=== PATIENT | female | born 1985 | race Caucasian/White ===

== ENCOUNTER 2017-02-20 12:39 | Emergency (ER) | payer SELFPAY ==
[2017-02-20 12:46] VITALS: BP 139/83
--- NOTE | 2017-02-20 14:11 | ER Document Report ---
ED General - General Chief Complaint: Flank Pain Stated Complaint: LEFT PELVIC PAIN Time Seen by Provider: 02/20/17 13:57 Mode of Arrival: Ambulatory Information source: Patient Notes: 32-year-old female history of ovarian cyst presents with complaints of left lower quadrant abdominal pain similar to previous ovarian issues. Patient notes she has a history of PCOS, does not wish to have any imaging or lab work performed at this time TRAVEL OUTSIDE OF THE [place] IN LAST 30 DAYS: No COUNTRY TRAVELED TO/FROM: [facility] - [facility] Onset: Just prior to arrival Onset/Duration: Sudden Quality of pain: Sharp Severity: Mild Pain Level: 1 Associated symptoms: Other Exacerbated by: Denies Relieved by: Denies Similar symptoms previously: Yes Recently seen / treated by doctor: Yes - Related Data Allergies/Adverse Reactions: No Known Allergies Allergy (Verified 02/20/17 13:55) Past Medical History - Social History Smoking Status: Never Smoker Cigarette use (# per day): No Chew tobacco use (# tins/day): No Smoking Education Provided: No Frequency of alcohol use: Occasional Drug Abuse: None Family History: Arthritis, DM, Hyperlipidemia, Hypertension, Malignancy Patient has suicidal ideation: No Patient has homicidal ideation: No - Past Medical History Cardiac Medical History: Reports: Hx Hypercholesterolemia Pulmonary Medical History: Reports: Hx Asthma, Hx Bronchitis Renal/ Medical History: Reports: Hx Kidney Stones, Hx Ovarian Cysts. Denies: Hx Peritoneal Dialysis Past Surgical History: Reports: Hx Cardiac Surgery - x1, Hx Section - x1, Hx Gynecologic Surgery - ovarian cyst removal, Hx Myringotomy, Hx Tubal Ligation, Hx Umbilical Hernia - Immunizations Hx Diphtheria, Pertussis, Tetanus Vaccination: Yes Review of Systems - Review of Systems Notes: REVIEW OF SYSTEMS: CONSTITUTIONAL : Denies fever, chills, or sweats. Denies recent illness. EENT: Denies eye, ear, throat, or mouth pain or symptoms. Denies nasal or sinus congestion or discharge. Denies throat, tongue, or mouth swelling or difficulty swallowing. CARDIOVASCULAR: Denies chest pain. Denies palpitations or racing or irregular heart beat. Denies ankle edema. RESPIRATORY: Denies cough, cold, or chest congestion. Denies shortness of breath, difficulty breathing, or wheezing. GASTROINTESTINAL: Denies abdominal pain or distention. Denies nausea, vomiting , or diarrhea. Denies blood in vomitus, stools, or per rectum. Denies black, tarry stools. Denies constipation. GENITOURINARY: Denies difficulty urinating, painful urination, burning, frequency, blood in urine, or discharge. FEMALE GENITOURINARY: LLQ pain MUSCULOSKELETAL: Denies back or neck pain or stiffness. Denies joint pain or swelling. SKIN: Denies rash, lesions or sores. HEMATOLOGIC : Denies easy bruising or bleeding. LYMPHATIC: Denies swollen, enlarged glands. NEUROLOGICAL: Denies confusion or altered mental status. Denies passing out or loss of consciousness. Denies dizziness or lightheadedness. Denies headache. Denies weakness or paralysis or loss of use of either side. Denies problems with gait or speech. Denies sensory loss, numbness, or tingling. Denies seizures. PSYCHIATRIC: Denies anxiety or stress. Denies depression, suicidal ideation, or homicidal ideation. ALL OTHER SYSTEMS REVIEWED AND NEGATIVE. Dictation was performed using [employer] voice recognition software PHYSICAL EXAMINATION: GENERAL: Well-appearing, well-nourished and in no acute distress. HEAD: Atraumatic, normocephalic. EYES: Pupils equal round and reactive to light, extraocular movements intact, conjunctiva are normal. ENT: Nares patent, oropharynx clear without exudates. Moist mucous membranes. NECK: Normal range of motion, supple without lymphadenopathy LUNGS: Breath sounds clear to auscultation bilaterally and equal. No wheezes rales or rhonchi. HEART: Regular rate and rhythm without murmurs ABDOMEN: Soft, tender in the LLQ no rebound or guarding Female : deferred Musculoskeletal: Normal range of motion, no pitting or edema. No cyanosis. NEUROLOGICAL: Cranial nerves grossly intact. Normal speech, normal gait. Normal sensory, motor exams PSYCH: Normal mood, normal affect. SKIN: Warm, Dry, normal turgor, no rashes or lesions noted. Physical Exam - Vital signs Vitals: Temp Pulse Resp BP Pulse Ox 97.8 F 80 18 139/83 H 98 02/20/17 12:45 02/20/17 12:45 02/20/17 12:45 02/20/17 12:45 02/20/17 12:45 Course - Re-evaluation Re-evalutation: 02/20/17 14:09 Patient defers on any lab work or imaging, which is only pain control, she understands the risks of this given that I do not know for sure that her pain is secondary to an ovarian cyst. Patient states she is 100% certain that it does, therefore she will be discharged after a physical examination and a medical screening exam however there is high risk for any life-threatening issues she does not wish me to look into Issues include ovarian torsion PID diverticulitis - Vital Signs Vital signs: Temp Pulse Resp BP Pulse Ox 97.8 F 80 18 139/83 H 98 02/20/17 12:45 02/20/17 12:45 02/20/17 12:45 02/20/17 12:45 02/20/17 12:45 Discharge - Discharge Clinical Impression: LLQ pain, PCOS (polycystic ovarian syndrome) Condition: Stable Disposition: HOME, SELF-CARE Instructions: Ovarian Cyst ([facility]) Prescriptions: Hydrocodone/Acetaminophen [[place] 5-325 mg Tablet] 1 tab PO Q6 #14 tablet Forms: Return to Work Referrals: [facility] [Provider Group] - Follow up tomorrow
== END 2017-02-20 14:14 | disposition home or self-care (01) ==
LOC: ER 12:39
DX: R10.32 Left lower quadrant pain (principal); E28.2 Polycystic ovarian syndrome; E78.00 Pure hypercholesterolemia, unspecified; Z87.442 Personal history of urinary calculi; Z98.51 Tubal ligation status
CPT/HCPCS: 99283

== ENCOUNTER 2017-05-20 21:41 | Emergency (ER) | payer SELFPAY ==
[2017-05-21] MEDS ORDERED: ONDANSETRON HCL INJ/PF 4 MG/2 ML SDV IV ONE (01:06)
[2017-05-21] MEDS ORDERED: NORMAL SALINE 1000 ML 1,000 ML IV ONE (01:07)
[2017-05-21] MEDS ORDERED: HYDROMORPHONE HCL INJ/PF 2 MG/ML AMPULE IV ONE (01:07)
--- NOTE | 2017-05-21 01:08 | ER Document Report ---
ED General - General Chief Complaint: L flank/side pain Stated Complaint: FLANK PAIN Time Seen by Provider: 05/21/17 00:54 Mode of Arrival: Ambulatory Information source: Patient TRAVEL OUTSIDE OF THE [place] IN LAST 30 DAYS: No - HPI Notes: Patient is a 32-year-old white female history of kidney stones, PCOS and urinary tract infections of left flank to presents to the emergency department with report left lower quadrant pain that she has had for the last 5 days with mild nausea. History of previous appendectomy and tubal ligation. Patient denies any vaginal bleeding or discharge or back injury or fever. - Related Data Allergies/Adverse Reactions: No Known Allergies Allergy (Verified 02/20/17 13:55) Past Medical History - General Information source: Patient - Social History Smoking Status: Never Smoker Frequency of alcohol use: None Drug Abuse: None Lives with: Family Family History: Arthritis, DM, Hyperlipidemia, Hypertension, Malignancy - Past Medical History Cardiac Medical History: Reports: Hx Hypercholesterolemia Pulmonary Medical History: Reports: Hx Asthma, Hx Bronchitis Renal/ Medical History: Reports: Hx Kidney Stones, Hx Ovarian Cysts. Denies: Hx Peritoneal Dialysis Past Surgical History: Reports: Hx Cardiac Surgery - x1, Hx Section - x1, Hx Gynecologic Surgery - ovarian cyst removal, Hx Myringotomy, Hx Tubal Ligation, Hx Umbilical Hernia - Immunizations Hx Diphtheria, Pertussis, Tetanus Vaccination: Yes Review of Systems - Review of Systems Notes: REVIEW OF SYSTEMS: CONSTITUTIONAL : Denies fever, chills, or sweats. Denies recent illness. EENT: Denies eye, ear, throat, or mouth pain or symptoms. Denies nasal or sinus congestion or discharge. Denies throat, tongue, or mouth swelling or difficulty swallowing. CARDIOVASCULAR: Denies chest pain. Denies palpitations or racing or irregular heart beat. Denies ankle edema. RESPIRATORY: Denies cough, cold, or chest congestion. Denies shortness of breath, difficulty breathing, or wheezing. GASTROINTESTINAL: Denies abdominal distention. Denies vomiting, or diarrhea. Denies blood in vomitus, stools, or per rectum. Denies black, tarry stools. Denies constipation. GENITOURINARY: Denies difficulty urinating, painful urination, burning, frequency, blood in urine, or discharge. FEMALE GENITOURINARY: Denies vaginal bleeding, heavy or abnormal periods, irregular periods. Denies vaginal discharge or odor. MUSCULOSKELETAL: Denies neck pain or stiffness. Denies joint pain or swelling. SKIN: Denies rash, lesions or sores. HEMATOLOGIC : Denies easy bruising or bleeding. LYMPHATIC: Denies swollen, enlarged glands. NEUROLOGICAL: Denies confusion or altered mental status. Denies passing out or loss of consciousness. Denies dizziness or lightheadedness. Denies headache. Denies weakness or paralysis or loss of use of either side. Denies problems with gait or speech. Denies sensory loss, numbness, or tingling. Denies seizures. PSYCHIATRIC: Denies anxiety or stress. Denies depression, suicidal ideation, or homicidal ideation. ALL OTHER SYSTEMS REVIEWED AND NEGATIVE. Dictation was performed using [employer] voice recognition software Physical Exam - Vital signs Vitals: Temp Pulse Resp BP Pulse Ox 98.1 F 107 H 18 139/99 H 99 05/20/17 22:44 05/20/17 22:44 05/20/17 22:44 05/20/17 22:44 05/20/17 22:44 - Notes Notes: PHYSICAL EXAMINATION: GENERAL: Well-appearing, well-nourished and in no acute distress. HEAD: Atraumatic, normocephalic. EYES: Pupils equal round and reactive to light, extraocular movements intact, conjunctiva are normal. ENT: Nares patent, oropharynx clear without exudates. Moist mucous membranes. NECK: Normal range of motion, supple without lymphadenopathy LUNGS: Breath sounds clear to auscultation bilaterally and equal. No wheezes rales or rhonchi. HEART: Regular rate and rhythm without murmurs ABDOMEN: Soft, mildly obese abdomen. No guarding, no rebound. No masses appreciated. Tender left flank CVA region to the left lower quadrant. No rebound or guarding. No pulsatile mass. Female : deferred Musculoskeletal: Normal range of motion, no pitting or edema. No cyanosis. NEUROLOGICAL: Cranial nerves grossly intact. Normal speech, normal gait. Normal sensory, motor exams PSYCH: Normal mood, normal affect. SKIN: Warm, Dry, normal turgor, no rashes or lesions noted. Course - Re-evaluation Re-evalutation: 05/21/17 02:58 Patient given normal saline bolus and given Zofran and Dilaudid for pain. 05/21/17 02:59 No evidence for kidney stone or diverticulitis or significant constipation. 05/21/17 03:58 Urine culture taken. Patient given IV Rocephin and additional morphine and had adequate pain relief. - Vital Signs Vital signs: Temp Pulse Resp BP Pulse Ox 98.1 F 107 H 18 139/99 H 99 05/20/17 22:44 05/20/17 22:44 05/20/17 22:44 05/20/17 22:44 05/20/17 22:44 - Laboratory Result Diagrams: 05/21/17 02:15 05/21/17 02:15 Laboratory results interpreted by me: 05/21/17 03:06 Urine Ketones TRACE H Ur Leukocyte Esterase SMALL H Discharge - Discharge Clinical Impression: Pyelonephritis Condition: Stable Disposition: HOME, SELF-CARE Instructions: Antinausea Medication ([facility]), Oral Narcotic Medication ([facility]), Pyelonephritis ([facility]), Rocephin ([facility]) Additional Instructions: Return to the emergency department in case of high fever, severe pain or vomiting. Prescriptions: Hydrocodone/Acetaminophen [[place] 5-325 mg Tablet] 1 tab PO Q4HP PRN #20 tablet PRN Reason: Ondansetron [Zofran Odt 4 mg Tablet] 1 tab PO Q8HP PRN #10 tab.rapdis PRN Reason: For Nausea/Vomiting Sulfamethoxazole/Trimethoprim [Bactrim Ds Tablet] 1 each PO BID #20 tablet Forms: Return to Work
--- NOTE | 2017-05-21 02:06 | RADIOLOGY REPORT (SQ) ---
EXAM DESCRIPTION: CT LTD RENAL STONE PROTOCOL ON COMPLETED DATE/TIME: 05/21/2017 1:35 am REASON FOR STUDY: L flank pain, hx renal stones and BTL COMPARISON: CT abdomen and pelvis 04/29/2016. TECHNIQUE: CT scan of the abdomen and pelvis performed without intravenous or oral contrast. Images reviewed with lung, soft tissue, and bone windows. Reconstructed coronal and sagittal MPR images revi ewed. All images stored on PACS. All CT scanners at this facility use dose modulation, iterative reconstruction, and/or weight based d osing when appropriate to reduce radiation dose to as low as reasonably achievable (ALARA). [facility]: Dose Right [facility]: CareDose [facility]: Dose Right [facility]: Teradose 4D [facility]: [employer] RADIATION DOSE: Up-to-date CT equipment and radiation dose reduction techniques were employed. CTDIv ol: 18.4 mGy. DLP: 1036 mGy-cm.mGy. LIMITATIONS: None. FINDINGS: LOWER CHEST: No consolidation or pleural effusion. There is a small hiatal hernia. NON-CONTRASTED LIVER, SPLEEN, ADRENALS: Evaluation limited by lack of IV contrast. No identified sign ificant masses. PANCREAS: No peripancreatic inflammatory changes. GALLBLADDER: There is cholelithiasis. RIGHT KIDNEY AND URETER: Assessment for masses limited by lack of IV contrast. No significant calci fications. No hydronephrosis or hydroureter. LEFT KIDNEY AND URETER: Assessment for masses limited by lack of IV contrast. No significant calcif ications. No hydronephrosis or hydroureter. AORTA AND RETROPERITONEUM: No abdominal aortic aneurysm. No retroperitoneal masses or adenopathy. BOWEL AND PERITONEAL CAVITY: No dilated bowel loops or inflammatory changes. No free fluid. APPENDIX: Surgically absent. PELVIS, BLADDER, AND ABDOMINAL WALL:No abnormal masses. No free fluid. Bladder decompressed. There i s a small fat containing umbilical hernia. BONES: No acute findings. IMPRESSION: No urinary tract calculi or hydronephrosis. No acute findings on unenhanced CT. Cholelithiasis. Small hiatal hernia. COMMENT: Quality ID # [id number]: Final reports with documentation of one or more dose reduction techniques (e.g., Automated exposure control, adjustment of the mA and/or kV according to patient size, use of iterative reconstruction technique) TECHNICAL DOCUMENTATION: JOB ID: [id number]- All Rights Reserved
[2017-05-21 02:41] LABS: ABSOLUTE EOSINOPHILS # (AUTO) 0.2 10^3/uL (0.0-0.6); ABSOLUTE LYMPHOCYTES (AUTO) 2.3 10^3/uL (0.5-4.7); ABSOLUTE MONOCYTES (AUTO) 0.7 10^3/uL (0.1-1.4); ABSOLUTE NEUT (AUTO) 7.2 10^3/uL (1.7-8.2); BASOPHILS % (AUTO) 0.4 % (0-2); EOSINOPHILS % (AUTO) 1.5 % (0-6); HEMATOCRIT 38.8 % (36.0-47.0); HEMOGLOBIN 13.2 g/dL (12.0-15.5); HGB HCT DIFFERENCE 0.8; LYMPHOCYTES % (AUTO) 22.3 % (13-45); MEAN CORPUSCULAR HEMOGLOBIN 29.3 pg (27.0-33.4); MEAN CORPUSCULAR HGB CONC 34.1 g/dL (32.0-36.0); MEAN CORPUSCULAR VOLUME 86 fl (80-97); MONOCYTES % (AUTO) 6.7 % (3-13); RED BLOOD COUNT 4.51 10^6/uL (3.72-5.28); RED CELL DISTRIBUTION WIDTH 13.8 % (11.5-14.0); SEGMENTED NEUTROPHILS % (AUTO) 69.1 % (42-78); WHITE BLOOD COUNT 10.4 10^3/uL (4.0-10.5)
[2017-05-21 02:47] LABS: ALANINE AMINOTRANSFERASE 48 U/L (9-52); ALBUMIN 4.3 g/dL (3.5-5.0); ALKALINE PHOSPHATASE 67 U/L (38-126); ANION GAP 15 (5-19); ASPARTATE AMINO TRANSFERASE 23 U/L (14-36); BILIRUBIN,DIRECT 0.4 mg/dL (0.0-0.4); BILIRUBIN,TOTAL 0.7 mg/dL (0.2-1.3); BLOOD UREA NITROGEN 12 mg/dL (7-20); CALCIUM 9.7 mg/dL (8.4-10.2); CARBON DIOXIDE 22 mmol/L (22-30); CHLORIDE 106 mmol/L (98-107); CREATININE RESULT 0.79 mg/dL (0.52-1.25); GLUCOSE 92 mg/dL (75-110); LIPASE 43.5 U/L (23-300); POTASSIUM 4.1 mmol/L (3.6-5.0); SODIUM 142.5 mmol/L (137-145); TOTAL PROTEIN 6.9 g/dL (6.3-8.2)
[2017-05-21 03:27] LABS: APPEARANCE,URINE SLIGHTLY-CLOUDY; BILIRUBIN,URINE NEGATIVE (NEGATIVE); GLUCOSE, URINE NEGATIVE (NEGATIVE); KETONES,URINE TRACE mg/dL (NEGATIVE); LEUKOCYTE ESTERASE,URINE SMALL (NEGATIVE); NITRITE,URINE NEGATIVE (NEGATIVE); PROTEIN,URINE NEGATIVE (NEGATIVE); URINE SPECIFIC GRAVITY 1.014; UROBILINOGEN,URINE NEGATIVE mg/dL (<2.0)
[2017-05-21] MEDS ORDERED: CEFTRIAXONE INJ 1000 MG VIAL IV ONE (03:55)
[2017-05-21] MEDS ORDERED: MORPHINE SULFATE 10 MG/ML INJ IV ONE (03:57)
[2017-05-21] MEDS ORDERED: HYDROCODONE/ACETAMINOPHEN 5-325 MG 6 TAB/DSPK PO PRN (03:57)
[2017-05-21 05:14] VITALS: BP 125/84
== END 2017-05-21 05:09 | disposition home or self-care (01) ==
LOC: ER 21:41
DX: R10.9 Unspecified abdominal pain (principal); N12 Tubulo-interstitial nephritis, not specified as acute or chronic; E78.00 Pure hypercholesterolemia, unspecified; J45.909 Unspecified asthma, uncomplicated; Z87.440 Personal history of urinary (tract) infections; Z87.442 Personal history of urinary calculi; Z98.51 Tubal ligation status
CPT/HCPCS: 99284; 96375; 96365; 36415; 87086; 83690; 85025; 80053; 81001; 76380; J2270; J1170; J0696; J2405; J7030

== ENCOUNTER 2017-05-27 11:40 | Observation (INO) | payer SELFPAY ==
[2017-05-27] MEDS ORDERED: NORMAL SALINE 1000 ML 1,000 ML IV PRN (12:07)
[2017-05-27] MEDS ORDERED: ONDANSETRON HCL INJ/PF 4 MG/2 ML SDV IV ONE (12:07)
[2017-05-27] MEDS ORDERED: MORPHINE SULFATE 10 MG/ML INJ IV ONE ×2 (12:07→15:41)
--- NOTE | 2017-05-27 12:08 | ER Document Report ---
ED Medical Screen (RME) - General Chief Complaint: Abdominal Pain Stated Complaint: CHEST PAIN Time Seen by Provider: 05/27/17 12:05 Notes: Patient states yesterday she had a dull pain in the right upper quadrant. This morning she woke with severe right upper quadrant pain that radiates to her back and right shoulder. She has not vomited but has no appetite. She has not had a bowel movement in 2 days. No problems with urination. No vaginal symptoms. She has had a previous appendectomy but no other abdominal surgeries. No shortness of breath. TRAVEL OUTSIDE OF THE [place] IN LAST 30 DAYS: No - Related Data Allergies/Adverse Reactions: No Known Allergies Allergy (Verified 02/20/17 13:55) Past Medical History - Past Medical History Cardiac Medical History: Reports: Hx Hypercholesterolemia Pulmonary Medical History: Reports: Hx Asthma, Hx Bronchitis Renal/ Medical History: Reports: Hx Kidney Stones, Hx Ovarian Cysts. Denies: Hx Peritoneal Dialysis Past Surgical History: Reports: Hx Cardiac Surgery - x1, Hx Section - x1, Hx Gynecologic Surgery - ovarian cyst removal, Hx Myringotomy, Hx Tubal Ligation, Hx Umbilical Hernia - Immunizations Hx Diphtheria, Pertussis, Tetanus Vaccination: Yes Physical Exam - Vital signs Vitals: Temp Pulse Resp BP Pulse Ox 97.6 F 133 H 18 145/94 H 98 05/27/17 11:43 05/27/17 11:43 05/27/17 11:43 05/27/17 11:43 05/27/17 11:43 Course - Vital Signs Vital signs: Temp Pulse Resp BP Pulse Ox 97.6 F 133 H 18 145/94 H 98 05/27/17 11:43 05/27/17 11:43 05/27/17 11:43 05/27/17 11:43 05/27/17 11:43
[2017-05-27 13:13] LABS: ABSOLUTE EOSINOPHILS # (AUTO) 0.2 10^3/uL (0.0-0.6); ABSOLUTE LYMPHOCYTES (AUTO) 1.3 10^3/uL (0.5-4.7); ABSOLUTE MONOCYTES (AUTO) 0.5 10^3/uL (0.1-1.4); ABSOLUTE NEUT (AUTO) 5.4 10^3/uL (1.7-8.2); BASOPHILS % (AUTO) 0.4 % (0-2); EOSINOPHILS % (AUTO) 2.4 % (0-6); HEMATOCRIT 41.5 % (36.0-47.0); HEMOGLOBIN 14.2 g/dL (12.0-15.5); HGB HCT DIFFERENCE 1.1; LYMPHOCYTES % (AUTO) 17.9 % (13-45); MEAN CORPUSCULAR HEMOGLOBIN 29.7 pg (27.0-33.4); MEAN CORPUSCULAR HGB CONC 34.2 g/dL (32.0-36.0); MEAN CORPUSCULAR VOLUME 87 fl (80-97); MONOCYTES % (AUTO) 6.5 % (3-13); RED BLOOD COUNT 4.78 10^6/uL (3.72-5.28); RED CELL DISTRIBUTION WIDTH 13.7 % (11.5-14.0); SEGMENTED NEUTROPHILS % (AUTO) 72.8 % (42-78); WHITE BLOOD COUNT 7.4 10^3/uL (4.0-10.5)
[2017-05-27 13:17] LABS: APPEARANCE,URINE SLIGHTLY-CLOUDY; BILIRUBIN,URINE NEGATIVE (NEGATIVE); GLUCOSE, URINE NEGATIVE (NEGATIVE); KETONES,URINE NEGATIVE (NEGATIVE); LEUKOCYTE ESTERASE,URINE TRACE (NEGATIVE); NITRITE,URINE NEGATIVE (NEGATIVE); PROTEIN,URINE NEGATIVE (NEGATIVE); URINE SPECIFIC GRAVITY 1.025
[2017-05-27 13:28] LABS: ALANINE AMINOTRANSFERASE 47 U/L (9-52); ALBUMIN 4.8 g/dL (3.5-5.0); ALKALINE PHOSPHATASE 73 U/L (38-126); ANION GAP 13 (5-19); ASPARTATE AMINO TRANSFERASE 35 U/L (14-36); BILIRUBIN,DIRECT 0.4 mg/dL (0.0-0.4); BILIRUBIN,TOTAL 0.8 mg/dL (0.2-1.3); BLOOD UREA NITROGEN 9 mg/dL (7-20); CALCIUM 9.9 mg/dL (8.4-10.2); CARBON DIOXIDE 21 mmol/L (22-30); CHLORIDE 107 mmol/L (98-107); CREATININE RESULT 0.87 mg/dL (0.52-1.25); GLUCOSE 108 mg/dL (75-110); LIPASE 38.3 U/L (23-300); POTASSIUM 4.2 mmol/L (3.6-5.0); SODIUM 140.8 mmol/L (137-145); TOTAL PROTEIN 7.7 g/dL (6.3-8.2)
--- NOTE | 2017-05-27 13:42 | ER Document Report ---
ED General - General Chief Complaint: Abdominal Pain Stated Complaint: CHEST PAIN Time Seen by Provider: 05/27/17 12:05 Information source: Patient Notes: 32-year-old female with past medical history as recorded being treated recently for urinary tract infection who presents today with 2 different presentations. In triage she complained initially of some right upper quadrant pain that radiated to her back and shoulder. On my examination she complains mostly of right-sided chest pain worse with deep inspirations. She denies any nausea, vomiting, fever, or associations with food. She denies any calf pain, leg swelling, recent trips or travel. Denies a history of upper abdominal pain or chest pain in the past. Does not smoke. She denies a family history of early heart attacks or strokes. TRAVEL OUTSIDE OF THE [place] IN LAST 30 DAYS: No - HPI Onset: Other - See above Onset/Duration: Gradual Quality of pain: Achy, Burning, Sharp Severity: Moderate Pain Level: 1 Associated symptoms: Other - See above Exacerbated by: Other - See above Relieved by: Denies Similar symptoms previously: No Recently seen / treated by doctor: Yes - Related Data Allergies/Adverse Reactions: No Known Allergies Allergy (Verified 02/20/17 13:55) Past Medical History - General Information source: Patient - Social History Smoking Status: Unknown if Ever Smoked Cigarette use (# per day): No Chew tobacco use (# tins/day): No Smoking Education Provided: No Frequency of alcohol use: None Family History: Arthritis, DM, Hyperlipidemia, Hypertension, Malignancy - Past Medical History Cardiac Medical History: Reports: Hx Hypercholesterolemia Pulmonary Medical History: Reports: Hx Asthma, Hx Bronchitis Renal/ Medical History: Reports: Hx Kidney Stones, Hx Ovarian Cysts. Denies: Hx Peritoneal Dialysis Past Surgical History: Reports: Hx Cardiac Surgery - x1, Hx Section - x1, Hx Gynecologic Surgery - ovarian cyst removal, Hx Myringotomy, Hx Tubal Ligation, Hx Umbilical Hernia - Immunizations Hx Diphtheria, Pertussis, Tetanus Vaccination: Yes Review of Systems - Review of Systems Constitutional: denies: Fever EENT: denies: Eye discharge, Nose discharge Cardiovascular: Chest pain. denies: Palpitations, Heart racing Respiratory: Short of breath Gastrointestinal: denies: Abdominal pain, Vomiting Genitourinary: denies: Dysuria Musculoskeletal: denies: Leg swelling Skin: Other - no hives. denies: Rash Neurological/Psychological: Other - no slurred speech -: Yes All other systems reviewed and negative Physical Exam - Vital signs Vitals: Temp Pulse Resp BP Pulse Ox 97.6 F 133 H 18 145/94 H 98 05/27/17 11:43 05/27/17 11:43 05/27/17 11:43 05/27/17 11:43 05/27/17 11:43 Notes: Reviewed vital signs and nursing note as charted by RN. CONSTITUTIONAL: Alert and oriented and responds appropriately to questions. Well -appearing; well-nourished HEAD: Normocephalic; atraumatic EYES: Sclerae non-icteric ENT: Normal nose; no rhinorrhea NECK: Supple without meningismus; non-tender; no cervical lymphadenopathy, no masses CARD: Regular rate and rhythm; no murmurs RESP: Normal chest excursion without splinting or tachypnea; TTP of the right chest wall; breath sounds clear and equal bilaterally ABD/GI: Normal bowel sounds; non-distended; soft, mild ttp of the ruq. Negative Morales's sign BACK: The back appears normal and is non-tender to palpation, there is no CVA tenderness EXT: Normal ROM in all joints; non-tender to palpation; no cyanosis, no effusions, no edema SKIN: Normal color for age and race; warm; dry; good turgor; capillary refill < 2 seconds; no acute lesions noted NEURO: Moves all extremities equally; Motor and sensory function intact PSYCH: The patient's mood and manner are appropriate. Grooming and personal hygiene are appropriate. Course - Re-evaluation Re-evalutation: 05/27/17 13:41 Given the history and physical examination we have ordered basic labs, troponin , liver panel, and an ultrasound was ordered in triage. Given the complaint primarily of some chest pain on my initial examination with a heart rate initially upon presentation of 133, we have placed the patient on the monitor and I have also added a d-dimer and an x-ray of the chest. 05/27/17 13:43 Patient's heart rate is currently 94. 05/27/17 15:35 EKG shows a heart of 105, sinus tachycardia, normal axis, no obvious ST elevation or depression. Labs as recorded. Normal white count, lipase, and liver panel. Normal troponin. Chest x-ray shows normal heart, normal mediastinum, no fractures, normal lung sy, no pneumothorax. Ultrasound shows multiple gallstones with no signs of cholecystitis. Patient however does have a positive Morales sign. I have consulted the surgical team. - Vital Signs Vital signs: Temp Pulse Resp BP Pulse Ox 97.6 F 133 H 18 145/94 H 98 05/27/17 11:43 05/27/17 11:43 05/27/17 11:43 05/27/17 11:43 05/27/17 11:43 - Laboratory Result Diagrams: 05/27/17 12:38 05/27/17 12:38 Laboratory results interpreted by me: 05/27/17 05/27/17 12:38 12:38 Carbon Dioxide 21 L Urine Urobilinogen 2.0 H Ur Leukocyte Esterase TRACE H Discharge - Discharge Clinical Impression: Symptomatic cholelithiasis Condition: Fair Disposition: ADMITTED OBSERVATION Admitting Provider: Surgicalist
--- NOTE | 2017-05-27 14:09 | RADIOLOGY REPORT (SQ) ---
EXAM DESCRIPTION: CHEST PA/LAT COMPLETED DATE/TIME: 05/27/2017 1:41 pm REASON FOR STUDY: 12, chest pain COMPARISON: 07/12/2012 two-view chest EXAM PARAMETERS: NUMBER OF VIEWS: two views TECHNIQUE: Digital Frontal and Lateral radiographic views of the chest acquired. RADIATION DOSE: NA LIMITATIONS: none FINDINGS: LUNGS AND PLEURA: No opacities, masses or pneumothorax. No pleural effusion. MEDIASTINUM AND HILAR STRUCTURES: No masses or contour abnormalities. HEART AND VASCULAR STRUCTURES: Heart normal size. No evidence for failure. BONES: No acute findings. HARDWARE: None in the chest. OTHER: No other significant finding. IMPRESSION: NO SIGNIFICANT RADIOGRAPHIC FINDING IN THE CHEST. TECHNICAL DOCUMENTATION: JOB ID: [id number] [employer]- All Rights Reserved
--- NOTE | 2017-05-27 15:24 | RADIOLOGY REPORT (SQ) ---
EXAM DESCRIPTION: U/S ABDOMEN LIMITED W/O DOP COMPLETED DATE/TIME: 05/27/2017 3:03 pm REASON FOR STUDY: ruq pain COMPARISON: None. TECHNIQUE: Dynamic and static grayscale images acquired of the abdomen and recorded on PACS. Additio nal selected color Doppler and spectral images recorded. LIMITATIONS: None. FINDINGS: PANCREAS: No masses. Visualized pancreatic duct normal caliber. LIVER: No masses. Echotexture normal. LIVER VASCULATURE: Normal directional flow of the main portal vein and hepatic veins. GALLBLADDER: Gallstone(s). No pericholecystic fluid. No wall thickening. ULTRASOUND-DETECTED MORALES'S SIGN: Positive. INTRAHEPATIC DUCTS AND COMMON DUCT: CBD and intrahepatic ducts normal caliber. No filling defects. INFERIOR VENA CAVA: Normal flow. AORTA: No aneurysm. RIGHT KIDNEY: Cortical thinning. No hydronephrosis. PERITONEAL AND RIGHT PLEURAL SPACE: No ascites or effusions. OTHER: No other significant findings. IMPRESSION: Cholelithiasis. Positive Morales sign. Surgical consultation is recommended. TECHNICAL DOCUMENTATION: JOB ID: [id number] [employer]- All Rights Reserved
[2017-05-27] MEDS ORDERED: PIPERACILLIN/TAZOBACTAM 3.375 GM VIAL IV ONE (15:40)
--- NOTE | 2017-05-27 16:38 | HISTORY AND PHYSICAL E ---
History and Physical NAME: TERESSA RESTREPO : 1985 AGE: 32Y ADMITTED: 05/27/2017 ROOM: CHIEF COMPLAINT: Right upper quadrant pain. HISTORY OF PRESENT ILLNESS: This is a 32-year-old female who had a fatty food the day before. Yesterday, the patient complained of right upper quadrant pains, kind of vague in severity and associated with nausea. This morning had severe right upper quadrant pain radiating to the back with nausea. Then, she had an ultrasound of the gallbladder in the emergency room which showed gallstones. PAST MEDICAL AND SURGICAL HISTORY: 1. History of section and tubal ligation in 2009. 2. She had 3 other normal vaginal deliveries. ALLERGIES: None known. SOCIAL HISTORY: Denies smoking, drinks rarely about twice a month, and no recreational drug use. REVIEW OF SYSTEMS: Complaining of chills since yesterday. No fever. Has some nasal congestion but no sinus pains. No sore throat. No visual or hearing problems. No shortness of breath or chest pains. No dysuria. Has been constipated for the past 3 days. No history of seizures or easy fatigability. No skin rash nor lymph node enlargements. Rest of the systems reviewed and are negative. FAMILY HISTORY: Positive for hypertension. PHYSICAL EXAMINATION: GENERAL: Well-developed, well-nourished, 32-year-old female, alert and oriented x3 and complaining of right upper quadrant pain. HEENT: Neck is supple. No thyromegaly. LUNGS: Clear. HEART: Regular sinus rhythm. ABDOMEN: Soft with tenderness in the right upper quadrant. EXTREMITIES: No edema. IMPRESSION: Acute calculous cholecystitis. PLAN: Plans are to start her on IV antibiotics, to hydrate her, and keep her NPO. Possible laparoscopic cholecystectomy in the morning. DICTATING PHYSICIAN: CLARIBEL TREVINO M.D. [id number] PHY#: [id number] ID: [id number] JOB#: [id number] ACCT: [id number] cc:CLARIBEL TREVINO M.D. NO Meme WALLS
[2017-05-27] MEDS: NORMAL SALINE 1000 ML 1,000 ML IV PRN ×2 (17:29→23:26)
--- NOTE | 2017-05-27 20:02 | EKG REPORT ---
SEVERITY:- OTHERWISE NORMAL ECG - SINUS TACHYCARDIA : Confirmed by: Butch Paulson 27-May-2017 20:01:43
[2017-05-27] MEDS: PIPERACILLIN SODIUM/TAZOBACTAM 3.375 GM in DEXTROSE 5%-WATER 100 ML IV SCH (20:57)
[2017-05-27] MEDS: HYDROMORPHONE HCL INJ/PF 2 MG/ML AMPULE IV PRN (20:58)
[2017-05-27] MEDS: ONDANSETRON HCL INJ/PF 4 MG/2 ML SDV IV PRN (21:05)
[2017-05-28] MEDS: HYDROMORPHONE HCL INJ/PF 2 MG/ML AMPULE IV PRN ×4 (01:40→23:49)
[2017-05-28] MEDS: PIPERACILLIN SODIUM/TAZOBACTAM 3.375 GM in DEXTROSE 5%-WATER 100 ML IV SCH ×4 (02:44→21:26)
[2017-05-28] MEDS: NORMAL SALINE 1000 ML 1,000 ML IV PRN ×3 (05:54→22:23)
[2017-05-28] MEDS: ONDANSETRON HCL INJ/PF 4 MG/2 ML SDV IV PRN ×3 (06:02→19:36)
[2017-05-28] MEDS ORDERED: ROCURONIUM BROMIDE INJ 50 MG/5 ML VIAL IV ONE (10:36)
[2017-05-28] MEDS ORDERED: SUCCINYLCHOLINE CHLORIDE INJ 200 MG/10 ML VIAL ONE (10:36)
[2017-05-28] MEDS ORDERED: HYDROMORPHONE HCL INJ/PF 2 MG/ML AMPULE IV PRN (11:30)
[2017-05-28] MEDS ORDERED: BUPIVACAINE HCL 0.25 % INJ/PF (2.5 MG/1 ML) 30 ML VIAL ONE (13:58)
[2017-05-28] MEDS ORDERED: ONDANSETRON HCL INJ/PF 4 MG/2 ML SDV ONE (15:46)
[2017-05-28] MEDS ORDERED: DEXAMETHASONE SOD PHOSPHATE INJ 4 MG/1 ML VIAL ONE (15:46)
[2017-05-28] MEDS ORDERED: MIDAZOLAM 2 MG/2 ML INJ ONE (15:46)
[2017-05-28] MEDS ORDERED: FENTANYL CITRATE INJ/PF 100 MCG/2 ML AMPUL ONE (15:46)
[2017-05-28] MEDS ORDERED: ACETAMINOPHEN 100 ML IV ONE (15:47)
[2017-05-28] MEDS ORDERED: HYDROMORPHONE HCL INJ/PF 2 MG/ML AMPULE ONE (15:47)
[2017-05-28] MEDS ORDERED: PROPOFOL INJ 200 MG/20 ML VIAL IV ONE (15:47)
[2017-05-28] MEDS ORDERED: PROMETHAZINE HCL INJ 25 MG/1 ML VIAL IV PRN (16:24)
[2017-05-28] MEDS ORDERED: MORPHINE SULFATE 10 MG/ML INJ IV PRN (16:24)
[2017-05-28] MEDS ORDERED: MEPERIDINE HCL/PF INJ 25 MG/1 ML DISP.SYRIN IV PRN (16:24)
[2017-05-28] MEDS ORDERED: DIPHENHYDRAMINE HCL 50 MG/ML VIAL IV PRN (16:24)
[2017-05-28] MEDS ORDERED: FENTANYL CITRATE INJ/PF 100 MCG/2 ML AMPUL IV PRN ×3 (16:24)
--- NOTE | 2017-05-28 18:33 | OPERATIVE REPORT E ---
Operative Report NAME: TERESSA RESTREPO : 1985 AGE: 32Y DATE OF SURGERY: 05/28/2017 ROOM: 210 PREOPERATIVE DIAGNOSIS: Acute calculus cholecystitis. POSTOPERATIVE DIAGNOSIS: Acute calculus cholecystitis. OPERATION: Laparoscopic cholecystectomy. SURGEON: CLARIBEL TREVINO M.D. ANESTHESIA: General. INDICATION: This is a 32-year-old female who has been complaining of right upper quadrant pains with nausea. Ultrasound of the gallbladder showed gallstones. Liver function tests were normal. DESCRIPTION OF PROCEDURE: After adequate general anesthesia, the patient was placed in the supine position and the abdomen prepped and draped in the usual sterile fashion. Appropriate timeout was then performed. Next, an infraumbilical elliptical incision was made and the fascia identified and divided between two Kaveh clamps. Hemostat was then placed through the fascia to the abdominal cavity and bluntly enlarged the opening. Next, a Mike trocar was then inserted through the fascia into the abdominal cavity and CO2 insufflated up to a pressure of 15 mmHg. Three other trocars were placed under direct vision, two 5 mm in the right upper quadrant and one 12 mm in the subxiphoid area. Next, the gallbladder was then identified and noted to be somewhat distended but the clamps able to be placed on the fundus. The gallbladder was then pulled over the liver and infundibulum also grasped. The cystic duct was then dissected and subsequently clipped with hemoclips and divided between hemoclips. Cystic duct was noted to be quite small. Next, the cystic artery was then dissected, clipped proximally and divided with the use of harmonic omid. The gallbladder was then taken off of the liver bed with the use of the harmonic omid. Part of the gallbladder kind of peeled off the fatty liver. Prior to removing the gallbladder completely, the surface of the liver was then with a spatula. Adequate hemostasis was noted. A Gelfoam was placed in the area of the liver bed just to make sure of hemostasis. There was a little leak of bile from the gallbladder, and this was then partly irrigated and suctioned out. The gallbladder was then completely removed from the liver bed with the use of harmonic omid. The gallbladder was placed in an EndoBag and pulled out through the umbilical port. There was at least one large stone palpated in the specimen. Next, the liver bed was then reinspected and noted to be relatively dry. All the trocars were then removed and the CO2 allowed to come out through the trocar sites. The infraumbilical fascial defect was then closed with a [id number] suture using #0-Vicryl. The subxiphoid defect partly closed with a single suture using #0-Vicryl. Skin incisions were then closed with running subcuticular 4-0 Vicryl undyed. Sterile dressings placed over the operative site. Needle, instrument, and sponge count all correct and estimated blood loss about 20 mL. The patient was brought to PACU in satisfactory condition. DICTATING PHYSICIAN: CLARIBEL TREVINO M.D. [id number] PHY#: [id number] ID: [id number] JOB#: [id number] ACCT: [id number] cc:CLARIBEL TREVINO M.D. >
[2017-05-29] MEDS: OXYCODONE-ACETAMINOPHEN 5-325 MG TABLET PO PRN ×2 (01:59→06:21)
[2017-05-29] MEDS: HYDROMORPHONE HCL INJ/PF 2 MG/ML AMPULE IV PRN ×2 (03:58→08:50)
[2017-05-29] MEDS: PIPERACILLIN SODIUM/TAZOBACTAM 3.375 GM in DEXTROSE 5%-WATER 100 ML IV SCH ×2 (03:59→08:50)
[2017-05-29] MEDS: NORMAL SALINE 1000 ML 1,000 ML IV PRN (03:59)
[2017-05-29 05:56] LABS: ALANINE AMINOTRANSFERASE 57 U/L (9-52); ALBUMIN 3.6 g/dL (3.5-5.0); ALKALINE PHOSPHATASE 51 U/L (38-126); ANION GAP 10 (5-19); ASPARTATE AMINO TRANSFERASE 39 U/L (14-36); BILIRUBIN,DIRECT 0.3 mg/dL (0.0-0.4); BILIRUBIN,TOTAL 0.8 mg/dL (0.2-1.3); BLOOD UREA NITROGEN 4 mg/dL (7-20); CALCIUM 9.1 mg/dL (8.4-10.2); CARBON DIOXIDE 19 mmol/L (22-30); CHLORIDE 110 mmol/L (98-107); CREATININE RESULT 0.76 mg/dL (0.52-1.25); GLUCOSE 154 mg/dL (75-110); POTASSIUM 4.4 mmol/L (3.6-5.0); SODIUM 139.2 mmol/L (137-145); TOTAL PROTEIN 6.1 g/dL (6.3-8.2)
[2017-05-29 06:02] LABS: ABSOLUTE LYMPHOCYTES (AUTO) 0.7 10^3/uL (0.5-4.7); ABSOLUTE MONOCYTES (AUTO) 0.2 10^3/uL (0.1-1.4); BASOPHILS % (AUTO) 0.1 % (0-2); HEMATOCRIT 34.1 % (36.0-47.0); HGB HCT DIFFERENCE 2.2; LYMPHOCYTES % (AUTO) 7.4 % (13-45); MEAN CORPUSCULAR HEMOGLOBIN 30.2 pg (27.0-33.4); MEAN CORPUSCULAR HGB CONC 35.5 g/dL (32.0-36.0); MEAN CORPUSCULAR VOLUME 85 fl (80-97); MONOCYTES % (AUTO) 2.7 % (3-13); RED BLOOD COUNT 4.02 10^6/uL (3.72-5.28); RED CELL DISTRIBUTION WIDTH 13.4 % (11.5-14.0); SEGMENTED NEUTROPHILS % (AUTO) 89.8 % (42-78); WHITE BLOOD COUNT 8.9 10^3/uL (4.0-10.5)
[2017-05-29 06:04] LABS: HEMOGLOBIN 12.1 g/dL (12.0-15.5)
[2017-05-29] MEDS: ONDANSETRON HCL INJ/PF 4 MG/2 ML SDV IV PRN (08:50)
[2017-05-29] MEDS ORDERED: FLUCONAZOLE 100 MG TABLET PO PRN (10:56)
[2017-05-29 12:24] VITALS: BP 110/67
== END 2017-05-29 13:15 | disposition home or self-care (01) ==
LOC: ER 11:40 → EH 16:53 → UNDOADMOB 16:53 → EH 17:19 → 2N 18:00 → EH 18:00 → 4N 05-29 03:03
PROVIDERS: ATTEND Surgery
PROC: 0FT44ZZ Resection of Gallbladder, Percutaneous Endoscopic Approach (ICD-10-PCS; principal; 2017-05-28 16:30)
DX: K80.10 Calculus of gallbladder with chronic cholecystitis without obstruction (principal); R07.9 Chest pain, unspecified; R00.0 Tachycardia, unspecified; Z87.442 Personal history of urinary calculi; Z98.51 Tubal ligation status; Z98.890 Other specified postprocedural states; Z87.42 Personal history of other diseases of the female genital tract; Z90.49 Acquired absence of other specified parts of digestive tract; Z82.49 Family history of ischemic heart disease and other diseases of the circulatory system
CPT/HCPCS: 47562; 93005; 99285; 96361; 96375; 96365; 36415 ×2; 83690; 85025 ×2; 81025; 80076; 80048; 80053; 81001; 84484; 85379; 88304 ×2; 71020; 76705; 93010; G0378 ×4; J2250; J3490; J1100; J3010; J2270; J1170 ×3; J0330; J2405 ×3; J7030 ×3; J2704; J2543 ×3; J0131; 790

== ENCOUNTER 2017-06-21 15:31 | Emergency (ER) | payer SELFPAY ==
[2017-06-21 15:37] VITALS: BP 124/77
--- NOTE | 2017-06-21 15:50 | ER Document Report ---
ED General - General Chief Complaint: Wound Recheck Stated Complaint: WOUND DRAINAGE Time Seen by Provider: 06/21/17 15:45 Mode of Arrival: Ambulatory Information source: Patient Notes: 32-year-old female presents with complaints of infected wound. Patient had recent surgery and had dehiscence of the sutures and was seen by , requiring further intervention. Patient notes she has been taught how to change dressings clean the area but is worried that there may be pus coming from it. She denies any fevers admits to pain TRAVEL OUTSIDE OF THE [place] IN LAST 30 DAYS: No - HPI Onset: Other - 2 week duration Onset/Duration: Persistent Quality of pain: Burning Severity: Mild Pain Level: 1 Associated symptoms: Other Exacerbated by: Denies Relieved by: Denies Similar symptoms previously: Yes Recently seen / treated by doctor: Yes - Related Data Allergies/Adverse Reactions: No Known Allergies Allergy (Verified 06/21/17 15:36) Past Medical History - Social History Smoking Status: Never Smoker Cigarette use (# per day): No Chew tobacco use (# tins/day): No Smoking Education Provided: No Family History: Arthritis, DM, Hyperlipidemia, Hypertension, Malignancy - Past Medical History Cardiac Medical History: Reports: Hx Hypercholesterolemia Pulmonary Medical History: Reports: Hx Asthma, Hx Bronchitis Renal/ Medical History: Reports: Hx Kidney Stones, Hx Ovarian Cysts. Denies: Hx Peritoneal Dialysis Past Surgical History: Reports: Hx Cardiac Surgery - x1, Hx Section - x1, Hx Gynecologic Surgery - ovarian cyst removal, Hx Myringotomy, Hx Tubal Ligation, Hx Umbilical Hernia - Immunizations Hx Diphtheria, Pertussis, Tetanus Vaccination: Yes Review of Systems - Review of Systems Notes: REVIEW OF SYSTEMS: CONSTITUTIONAL : Denies fever, chills, or sweats. Denies recent illness. EENT: Denies eye, ear, throat, or mouth pain or symptoms. Denies nasal or sinus congestion or discharge. Denies throat, tongue, or mouth swelling or difficulty swallowing. CARDIOVASCULAR: Denies chest pain. Denies palpitations or racing or irregular heart beat. Denies ankle edema. RESPIRATORY: Denies cough, cold, or chest congestion. Denies shortness of breath, difficulty breathing, or wheezing. GASTROINTESTINAL: Denies abdominal pain or distention. Denies nausea, vomiting , or diarrhea. Denies blood in vomitus, stools, or per rectum. Denies black, tarry stools. Denies constipation. GENITOURINARY: Denies difficulty urinating, painful urination, burning, frequency, blood in urine, or discharge. FEMALE GENITOURINARY: Denies vaginal bleeding, heavy or abnormal periods, irregular periods. Denies vaginal discharge or odor. MUSCULOSKELETAL: Denies back or neck pain or stiffness. Denies joint pain or swelling. SKIN: wound to chest HEMATOLOGIC : Denies easy bruising or bleeding. LYMPHATIC: Denies swollen, enlarged glands. NEUROLOGICAL: Denies confusion or altered mental status. Denies passing out or loss of consciousness. Denies dizziness or lightheadedness. Denies headache. Denies weakness or paralysis or loss of use of either side. Denies problems with gait or speech. Denies sensory loss, numbness, or tingling. Denies seizures. PSYCHIATRIC: Denies anxiety or stress. Denies depression, suicidal ideation, or homicidal ideation. ALL OTHER SYSTEMS REVIEWED AND NEGATIVE. PHYSICAL EXAMINATION: GENERAL: Well-appearing, well-nourished and in no acute distress. HEAD: Atraumatic, normocephalic. EYES: Pupils equal round and reactive to light, extraocular movements intact, conjunctiva are normal. ENT: Nares patent, oropharynx clear without exudates. Moist mucous membranes. NECK: Normal range of motion, supple without lymphadenopathy LUNGS: Breath sounds clear to auscultation bilaterally and equal. No wheezes rales or rhonchi. HEART: Regular rate and rhythm without murmurs ABDOMEN: Soft, nontender, nondistended abdomen. No guarding, no rebound. No masses appreciated. Female : deferred Musculoskeletal: Normal range of motion, no pitting or edema. No cyanosis. NEUROLOGICAL: Cranial nerves grossly intact. Normal speech, normal gait. Normal sensory, motor exams PSYCH: Normal mood, normal affect. SKIN: 2x2 ulcer midsternum, no drainage, granulation tissue noted Dictation was performed using [employer] voice recognition software Physical Exam - Vital signs Vitals: Temp Pulse Resp BP Pulse Ox 98.2 F 102 H 16 124/77 99 06/21/17 15:35 06/21/17 15:35 06/21/17 15:35 06/21/17 15:35 06/21/17 15:35 Course - Re-evaluation Re-evalutation: 06/21/17 15:50 Dr Jennifer will evaluate patient 06/21/17 18:10 Surgeon agrees that there is no sign of infection patient is stable for discharge Very close follow-up instructions provided After performing a Medical Screening Examination, I estimate there is LOW risk for OPEN FRACTURE, COMPARTMENT SYNDROME, TENDON RUPTURE, ACUTE NEUROVASCULAR INJURY, or RETAINED FOREIGN BODY, thus I consider the discharge disposition reasonable. Also, there is no evidence or peritonitis, sepsis, or toxicity. I have reevaluated this patient multiple times and no significant life threatening changes are noted. The patient and I have discussed the diagnosis and risks, and we agree with discharging home with close follow-up with the understanding that symptoms and presentations can change. We also discussed returning to the Emergency Department immediately if new or worsening symptoms occur. We have discussed the symptoms which are most concerning (e.g., changing or worsening pain, fever, numbness, weakness, cool or painful digits) that necessitate immediate return. - Vital Signs Vital signs: Temp Pulse Resp BP Pulse Ox 98.2 F 102 H 16 124/77 99 06/21/17 15:35 06/21/17 15:35 06/21/17 15:35 06/21/17 15:35 06/21/17 15:35 Discharge - Discharge Clinical Impression: Encounter for wound re-check Condition: Stable Disposition: HOME, SELF-CARE Instructions: Delayed Wound Closure ([facility]) Additional Instructions: Follow up with your physician tomorrow for further care or return to the ED IMMEDIATELY if symptoms worsen or new concerns occur. If you cannot afford to follow up with your primary care physician a list of low cost clinics have been provided at the end of your discharge papers as well. Prescriptions: Hydrocodone/Acetaminophen [Dundas 5-325 mg Tablet] 1 tab PO Q6 #14 tablet
== END 2017-06-21 16:31 | disposition home or self-care (01) ==
LOC: ER 15:31
DX: T81.31XD Disruption of external operation (surgical) wound, not elsewhere classified, subsequent encounter (principal); Y83.9 Surgical procedure, unspecified as the cause of abnormal reaction of the patient, or of later complication, without mention of misadventure at the time of the procedure; L98.499 Non-pressure chronic ulcer of skin of other sites with unspecified severity; J45.909 Unspecified asthma, uncomplicated
CPT/HCPCS: 99282

== ENCOUNTER 2017-08-10 14:43 | Emergency (ER) | payer MEDICAID ==
--- NOTE | 2017-08-10 16:07 | RADIOLOGY REPORT (SQ) ---
EXAM DESCRIPTION: CHEST PA/LAT COMPLETED DATE/TIME: 08/10/2017 3:35 pm REASON FOR STUDY: Asthma, anxious, anterior chest pain and tightness COMPARISON: 05/27. TECHNIQUE: Frontal and lateral radiographic views of the chest acquired. NUMBER OF VIEWS: Two view. LIMITATIONS: None. FINDINGS: LUNGS AND PLEURA: No opacities, masses or pneumothorax. No pleural effusion. MEDIASTINUM AND HILAR STRUCTURES: No masses or contour abnormalities. HEART AND VASCULAR STRUCTURES: Heart normal size. No evidence for failure. BONES: No acute findings. HARDWARE: None in the chest. OTHER: No other significant finding. IMPRESSION: NO SIGNIFICANT RADIOGRAPHIC FINDING IN THE CHEST. TECHNICAL DOCUMENTATION: JOB ID: [id number] [employer] All Rights Reserved
[2017-08-10 16:19] VITALS: BP 124/84
--- NOTE | 2017-08-10 16:21 | ER Document Report ---
ED Respiratory Problem - General Chief Complaint: Breathing Difficulty Stated Complaint: BREATHING PROBLEMS Time Seen by Provider: 08/10/17 15:17 Notes: Patient has a history of asthma and felt as if she was having the onset of an asthmatic episode about an hour ago. She began to get very anxious and think she might of gotten a panic attack or stress reaction She did use her pro-air inhaler 4 puffs during an hours time. She has been using it since yesterday. Patient has had a cough but no phlegm being produced. Has a history of asthma, as mentioned. Has not had any fever. She is beginning to feel better now but feels some pressure in the upper substernal area of her chest. Patient says she has been under a lot of stress. She is raising 3 children and working and concerned about finances with the holiday coming up. TRAVEL OUTSIDE OF THE [place] IN LAST 30 DAYS: No - HPI Patient complains to provider of: Asthma - Related Data Allergies/Adverse Reactions: No Known Allergies Allergy (Verified 08/10/17 15:00) Past Medical History - Social History Smoking Status: Unknown if Ever Smoked Cigarette use (# per day): No Chew tobacco use (# tins/day): No Frequency of alcohol use: None Drug Abuse: None Family History: Reviewed & Not Pertinent, Arthritis, DM, Hyperlipidemia, Hypertension, Malignancy Patient has suicidal ideation: No Patient has homicidal ideation: No - Past Medical History Cardiac Medical History: Reports: Hx Hypercholesterolemia Pulmonary Medical History: Reports: Hx Asthma, Hx Bronchitis Renal/ Medical History: Reports: Hx Kidney Stones, Hx Ovarian Cysts Psychiatric Medical History: Reports: Hx Anxiety Past Surgical History: Reports: Hx Cardiac Surgery - x1, Hx Section - x1, Hx Gynecologic Surgery - ovarian cyst removal, Hx Myringotomy, Hx Tubal Ligation, Hx Umbilical Hernia - Immunizations Hx Diphtheria, Pertussis, Tetanus Vaccination: Yes Review of Systems - Review of Systems Notes: REVIEW OF SYSTEMS: CONSTITUTIONAL : Denies fever. EENT: Denies eye, ear, nose or mouth or throat pain or other symptoms. CARDIOVASCULAR: See HPI. RESPIRATORY: Has had a dry cough, not much congestion or shortness of breath. GASTROINTESTINAL: Denies abdominal pain or nausea, vomiting, or diarrhea. GENITOURINARY: Denies difficulty or painful urinating, urinary frequency, blood in urine. MUSCULOSKELETAL: Denies back or neck pain. Denies joint pain or swelling. SKIN: Denies rash or skin lesions. NEUROLOGICAL: Denies LOC or altered mental status. Denies headache. Denies sensory loss or motor deficits. ALL OTHER SYSTEMS REVIEWED AND NEGATIVE. Physical Exam - Vital signs Vitals: Temp Pulse Resp BP Pulse Ox 97.6 F 82 14 119/83 99 08/10/17 15:00 08/10/17 15:00 08/10/17 15:00 08/10/17 15:00 08/10/17 15:00 Interpretation: Normal - Notes Notes: PHYSICAL EXAMINATION: GENERAL: Well-appearing, in no acute distress. Vital signs are normal. HEAD: Atraumatic, normocephalic. NECK: Normal range of motion, supple. LUNGS: Breath sounds clear and equal bilaterally. No wheezes heard anywhere. Good air flow sounds throughout. HEART: Regular rate and rhythm without murmurs. Not tachycardic. ABDOMEN: Soft, nontender. No guarding or rebound. BACK: No tenderness throughout entire back. EXTREMITIES: Normal range of motion without pain. Negative Homans bilaterally. NEUROLOGICAL: Normal speech, normal gait. Normal sensory, motor, and reflex exams. Awake, alert, and oriented x3. Cranial nerves normal. PSYCH: Normal mood, normal affect. Anxious. SKIN: Warm, dry, no rashes. Course - Vital Signs Vital signs: Temp Pulse Resp BP Pulse Ox 97.7 F 72 16 124/84 100 08/10/17 16:19 08/10/17 16:19 08/10/17 16:19 08/10/17 16:19 08/10/17 16:19 - Diagnostic Test Radiology results interpreted by me: 08/10/17 20:47 Chest x-ray is normal. Discharge - Discharge Clinical Impression: Asthma, Anxiety Condition: Stable Disposition: HOME, SELF-CARE Additional Instructions: ASTHMA: You have been diagnosed as having asthma. This is a condition where there is episodic tightness in the bronchial tubes. Allergies, infections, and polluted or cold air may be contributing factors. Emergency treatment of a severe asthma attack may include adrenaline shots , or bronchodilator aerosol. You may feel lightheaded, have a decreased exercise tolerance and a rapid pulse for an hour or two. Rest and get plenty of fluids. Home treatment of asthma requires bronchodilator drugs. These can be administered by injection, inhalation, or by mouth. Antibiotics and corticosteroids may be required for some patients. You should avoid chemical fumes, dusts, pollens, and exercising in very cold or dry air. If you smoke, stop!! If you develop a fever, increased wheezing, chest pain, or severe shortness of breath, you should contact the doctor immediately. STEROID MEDICATION: You have been given an injection of or oral medicine of the cortisone/ steroid class. This medication is used to control inflammation or allergy. Miguelangel t is usually only given for a short period of time, until the acute process subsides. There are usually no side effects from short-term use of cortisone-like medications. Some persons feel an increased sense of well-being and are not sleepy at bedtime. Long-term use of cortisone medications is best avoided, unless required for a severe condition. If your condition does not remit, or relapses after the course of corticosteroid medication, you should consult your physician. INHALED BRONCHODILATORS: You have received treatment(s) of and/or prescription for an inhaled bronchodilator -- a medication which stimulates the airways in the lung to dilate. This improves the flow of air in asthma, bronchitis, and emphysema. These medicines have some similarity to adrenaline, and can cause similar side effects: shakiness, racing heart, and a sense of nervousness. These side effects decrease with time. Contact your doctor if these side effects are severe. Do not over-use the medicine. Too-frequent use of the inhaler may make it ineffective. Call your doctor if the inhaler is not controlling your symptoms at the prescribed doses. USE OF ACETAMINOPHEN (Tylenol): Acetaminophen may be taken for pain relief or fever control. It's much safer than aspirin, offering a wider range of "safe" dosages. It is safe during . Some brand names are Tylenol, Panadol, Datril, Anacin 3, Tempra, and Liquiprin. Acetaminophen can be repeated every four hours. The following are maximum recommended dosages: WEIGHT Dose Drops Elixir Chewable( 80mg) (LBS.) drprs=droppers tsp=teaspoon >89 pounds or adults 650 mg to 900 mg Acetaminophen can be repeated every four hours. Maximum dose not to exceed 4000 mg a day. These maximum recommended dosages are slightly higher than the dosages written on the product container, but these dosages are very safe and below the toxic dosage for acetaminophen. Anxiety The physician feels that some of your health problems are being caused by anxiety. Anxiety affects your health in many ways. Anxiety alone can cause palpitations, sweats, chest pains, abdominal pains, shortness of breath, and headaches. It contributes to ulcer disease, high blood pressure, irritable bowel syndrome, and has been shown to cause flare-ups of many other diseases. Anxiety is not a simple disorder to treat. If the anxiety is due to recent life stresses, you may simply need time to "work through" the changes. If the anxiety is due to an underlying unhappiness with yourself or due to psychiatric disturbance, professional help will be needed. Your physician can refer you for further help if needed. Anti-anxiety medication is occasionally given if the stress is acute or if you are having trouble sleeping. Chronic or frequent use of these medications is not a good idea because the body becomes reliant on it, preventing you from dealing with life's normal stresses. FOLLOW-UP CARE: If you have been referred to a physician for follow-up care, call the physician s office for an appointment as you were instructed or within the next two days. If you experience worsening or a significant change in your symptoms, notify the physician immediately or return to the Emergency Department at any time for re-evaluation. Prescriptions: Prednisone [Deltasone 10 mg Tablet] 10 mg PO ASDIR PRN #21 tablet PRN Reason: Referrals: VIDHYA WELCH PA-C [Primary Care Provider] - Follow up as needed
== END 2017-08-10 16:25 | disposition home or self-care (01) ==
LOC: ER 14:43
DX: J45.909 Unspecified asthma, uncomplicated (principal); F41.9 Anxiety disorder, unspecified; R06.02 Shortness of breath; R05 Cough
CPT/HCPCS: 71020; 99284

== ENCOUNTER 2018-02-24 19:43 | Emergency (ER) | payer OTHER, MEDICAID ==
[2018-02-24] MEDS ORDERED: IBUPROFEN 800 MG TABLET PO ONE (19:58)
--- NOTE | 2018-02-24 20:08 | RADIOLOGY REPORT (SQ) ---
EXAM DESCRIPTION: ANKLE RIGHT COMPLETE COMPLETED DATE/TIME: 02/24/2018 8:00 pm REASON FOR STUDY: pain s/p injury COMPARISON: None. NUMBER OF VIEWS: Three views. TECHNIQUE: AP, lateral, and oblique radiographic images acquired of the right ankle. LIMITATIONS: None. FINDINGS: MINERALIZATION: Normal. BONES: No acute fracture or dislocation. No worrisome bone lesions. JOINTS: No effusions. SOFT TISSUES: No soft tissue swelling. No foreign body. OTHER: No other significant finding. IMPRESSION: NEGATIVE STUDY OF THE RIGHT ANKLE. NO RADIOGRAPHIC EVIDENCE OF ACUTE INJURY. TECHNICAL DOCUMENTATION: JOB ID: [id number] [employer]- All Rights Reserved Reading location - IP/workstation name: [email or web address]
--- NOTE | 2018-02-24 20:09 | RADIOLOGY REPORT (SQ) ---
EXAM DESCRIPTION: FOOT RIGHT COMPLETE COMPLETED DATE/TIME: 02/24/2018 8:00 pm REASON FOR STUDY: PAIN S/P INJURY COMPARISON: None. NUMBER OF VIEWS: Three views. TECHNIQUE: AP, lateral and oblique radiographic images acquired of the right foot. LIMITATIONS: None. FINDINGS: MINERALIZATION: Normal. BONES: No acute fracture or dislocation. Small heel spur. No worrisome bone lesions. JOINTS: No effusions. SOFT TISSUES: No soft tissue swelling. No foreign body. OTHER: No other significant finding. IMPRESSION: NEGATIVE STUDY OF THE RIGHT FOOT. NO RADIOGRAPHIC EVIDENCE OF ACUTE INJURY. TECHNICAL DOCUMENTATION: JOB ID: [id number] [employer]- All Rights Reserved Reading location - IP/workstation name: [email or web address]
--- NOTE | 2018-02-24 20:21 | ER Document Report ---
ED Extremity Problem, Lower - General Mode of Arrival: Medic Information source: Patient TRAVEL OUTSIDE OF THE [place] IN LAST 30 DAYS: No - General Chief Complaint: R ankle injury/ deformity Stated Complaint: RT ANKLE INJURY Time Seen by Provider: 02/24/18 19:51 Notes: 33 y.o. female presents to the ED via EMS s/p RLE injury. Pt reports that she went to heat up dinner and slipped in water on the ground and her RT leg went forward and twisted and she landed on her LT knee. Pt denies any injury to her head or neck. She denies any trouble moving her LT knee. (GIDEON NIELSEN) - Related Data Allergies/Adverse Reactions: No Known Allergies Allergy (Verified 08/10/17 15:00) Past Medical History - General Information source: Patient - Social History Smoking Status: Never Smoker Frequency of alcohol use: Occasional Family History: Reviewed & Not Pertinent, Arthritis, DM, Hyperlipidemia, Hypertension, Malignancy - Past Medical History Cardiac Medical History: Reports: Hx Hypercholesterolemia Pulmonary Medical History: Reports: Hx Asthma, Hx Bronchitis Renal/ Medical History: Reports: Hx Kidney Stones, Hx Ovarian Cysts. Denies: Hx Peritoneal Dialysis Psychiatric Medical History: Reports: Hx Anxiety Past Surgical History: Reports: Hx Appendectomy, Hx Cardiac Surgery - x1, Hx Section - x1, Hx Cholecystectomy, Hx Gynecologic Surgery - ovarian cyst removal, Hx Myringotomy, Hx Tubal Ligation, Hx Umbilical Hernia - Immunizations Hx Diphtheria, Pertussis, Tetanus Vaccination: Yes Review of Systems - Review of Systems Constitutional: No symptoms reported EENT: No symptoms reported Cardiovascular: No symptoms reported Respiratory: No symptoms reported Gastrointestinal: No symptoms reported Genitourinary: No symptoms reported Female Genitourinary: No symptoms reported Musculoskeletal: See HPI, Ankle swelling, Other - LLE injury with pain. denies : Neck pain Skin: No symptoms reported Hematologic/Lymphatic: No symptoms reported Neurological/Psychological: No symptoms reported -: Yes All other systems reviewed and negative Physical Exam - Vital signs Vitals: Temp Pulse Resp BP Pulse Ox 98.0 F 80 16 122/75 100 02/24/18 20:12 02/24/18 20:12 02/24/18 20:12 02/24/18 20:12 02/24/18 20:12 - Notes Notes: Physical Exam: General: Alert, appears well. HEENT: Normocephalic. Atraumatic. PERRL. Extraocular movements intact. Oropharynx clear. Neck: Supple. Non-tender. Respiratory: No respiratory distress. Clear and equal breath sounds bilaterally. Cardiovascular: Regular rate and rhythm. Abdominal: Normal Inspection. Non-tender. No distension. Normal Bowel Sounds. Back: Non-tender. No deformity or step off. Extremities: Moves all four extremities. Upper extremities: Normal inspection. Normal ROM. Lower extremities: TTP over the RT lateral malleolus and RT inferior malleolus. Sensation intact. Full range of motion and 5/5 strength to bilateral lower extremities. Neurological: Normal cognition. AAOx3. Normal speech. Psychological: Normal affect. Normal Mood. Skin: Warm. Dry. Normal color. (GIDEON NIELSEN) Course - Re-evaluation Re-evalutation: 02/24/18 Patient is a 33-year-old female who fell and injured her right ankle. Difficulty ambulating on it. Patient also had her left knee but is not really having pain or any difficulty moving them. No other injuries. Denies any medical problems. Patient was given ankle stirrup and crutches for a likely sprain of her right ankle. No acute findings on x-ray. Patient will be discharged home with a short course of [place] if she needs it for severe pain. Otherwise she is to take Tylenol and ibuprofen [id number] as needed. Understands and agrees with plan. Neurovascularly intact at the time of discharge. Follow-up with PMD and Ortho as needed. Stable for discharge. (BLU SCOTT) - Vital Signs Vital signs: Temp Pulse Resp BP Pulse Ox 97.9 F 74 16 118/68 99 02/24/18 20:53 02/24/18 20:53 02/24/18 20:53 02/24/18 20:53 02/24/18 20:53 Discharge - Discharge Clinical Impression: Right ankle sprain Qualifiers: Encounter type: initial encounter Involved ligament of ankle: unspecified ligament Qualified Code(s): S93.401A - Sprain of unspecified ligament of right ankle, initial encounter Right foot sprain Qualifiers: Encounter type: initial encounter Qualified Code(s): S93.601A - Unspecified sprain of right foot, initial encounter Condition: Stable Disposition: HOME, SELF-CARE Instructions: Ankle Stirrup Splint ([facility]), Use of Crutches ([facility]), Ice & Elevation ([facility]), Ice Packs ([facility]), Sprained Ankle ([facility]) Forms: Return to Work Referrals: VIDHYA WELCH PA-C [Primary Care Provider] - Follow up in 3-5 days Scribe Attestation: 02/24/18 22:07 I personally performed the services described in the documentation, reviewed and edited the documentation which was dictated to the scribe in my presence, and it accurately records my words and actions. (BLU SCOTT
[2018-02-24] MEDS ORDERED: HYDROCODONE/ACETAMINOPHEN 5-325 MG (6 TAB/ER DISP) PO PRN (20:41)
[2018-02-24 21:37] VITALS: BP 118/68
== END 2018-02-24 20:35 | disposition home or self-care (01) ==
LOC: ER 19:43
DX: S93.401A Sprain of unspecified ligament of right ankle, initial encounter (principal); S93.601A Unspecified sprain of right foot, initial encounter; W01.0XXA Fall on same level from slipping, tripping and stumbling without subsequent striking against object, initial encounter; E78.00 Pure hypercholesterolemia, unspecified; Z87.442 Personal history of urinary calculi; Z90.49 Acquired absence of other specified parts of digestive tract; Z98.51 Tubal ligation status
CPT/HCPCS: 99284; 73610; 73630; L1902

== ENCOUNTER 2018-02-28 13:45 | Emergency (ER) | payer OTHER, MEDICAID ==
--- NOTE | 2018-02-28 15:06 | ER Document Report ---
ED Extremity Problem, Lower - General Chief Complaint: Foot Pain Stated Complaint: RIGHT FOOT INJURY Time Seen by Provider: 02/28/18 14:52 Mode of Arrival: Ambulatory Information source: Parent Notes: 33-year-old female presented to ED for complaint of right foot pain since Friday. She states she fell Friday and was seen at that time. She states that the splint they applied actually made the pain worse. Patient states she took the splint off because it was just making the pain worse. Patient is alert and oriented, pupils equal and react to light, respirations regular and unlabored, patient is able to ambulate but states it is painful to ambulate. TRAVEL OUTSIDE OF THE [place] IN LAST 30 DAYS: No - HPI Patient complains to provider of: Injury, Pain, Swelling Location: Ankle, Foot Occurred: Other Onset/Duration: Persistent Quality of pain: Achy, Throbbing Pain Level: 4 Context: Fell Recent injury: No Associated symptoms: Painful ambulation Exacerbated by: Walking Relieved by: Elevation, Ice - Related Data Allergies/Adverse Reactions: No Known Allergies Allergy (Verified 02/28/18 13:50) Past Medical History - General Information source: Patient - Social History Smoking Status: Never Smoker Cigarette use (# per day): No Chew tobacco use (# tins/day): No Smoking Education Provided: No Frequency of alcohol use: Occasional Drug Abuse: None Lives with: Family Family History: Reviewed & Not Pertinent, Arthritis, DM, Hyperlipidemia, Hypertension, Malignancy Patient has suicidal ideation: No Patient has homicidal ideation: No - Past Medical History Cardiac Medical History: Reports: Hx Hypercholesterolemia Pulmonary Medical History: Reports: Hx Asthma, Hx Bronchitis EENT Medical History: Reports: None Neurological Medical History: Reports: None Endocrine Medical History: Reports: None Renal/ Medical History: Reports: Hx Kidney Stones, Hx Ovarian Cysts Malignancy Medical History: Reports: None GI Medical History: Reports: None Musculoskeltal Medical History: Reports Hx Musculoskeletal Trauma Skin Medical History: Reports None Psychiatric Medical History: Reports: Hx Anxiety Traumatic Medical History: Reports: None Infectious Medical History: Reports: None Past Surgical History: Reports: Hx Appendectomy, Hx Cardiac Surgery - x1, Hx Section - x1, Hx Cholecystectomy, Hx Gynecologic Surgery - ovarian cyst removal, Hx Myringotomy, Hx Tubal Ligation, Hx Umbilical Hernia - Immunizations Immunizations up to date: Yes Hx Diphtheria, Pertussis, Tetanus Vaccination: Yes Review of Systems - Review of Systems Constitutional: No symptoms reported EENT: No symptoms reported Cardiovascular: No symptoms reported Respiratory: No symptoms reported Gastrointestinal: No symptoms reported Genitourinary: No symptoms reported Female Genitourinary: No symptoms reported Musculoskeletal: Ankle swelling - Right foot and ankle pain and swelling bruising Skin: No symptoms reported Hematologic/Lymphatic: No symptoms reported Neurological/Psychological: No symptoms reported -: Yes All other systems reviewed and negative Physical Exam - Vital signs Vitals: Temp Pulse Resp BP Pulse Ox 98.2 F 81 16 120/80 99 02/28/18 14:14 02/28/18 14:14 02/28/18 14:14 02/28/18 14:14 02/28/18 14:14 Interpretation: Normal - General General appearance: Appears well, Alert - HEENT Head: Normocephalic, Atraumatic Eyes: Normal Pupils: PERRL - Respiratory Respiratory status: No respiratory distress Chest status: Nontender Breath sounds: Normal Chest palpation: Normal - Cardiovascular Rhythm: Regular Heart sounds: Normal auscultation Murmur: No - Abdominal Inspection: Normal Distension: No distension Bowel sounds: Normal Tenderness: Nontender Organomegaly: No organomegaly - Back Back: Normal, Nontender - Extremities General upper extremity: Normal inspection, Nontender, Normal color, Normal ROM , Normal temperature General lower extremity: Normal temperature Ankle: Tender, Ecchymosis, Edema, Unable to bear weight Foot: Tender, Ecchymosis, Edema, No evidence of FB - Neurological Neuro grossly intact: Yes Cognition: Normal Orientation: AAOx4 Jennifer Coma Scale Eye Opening: Spontaneous Jennifer Coma Scale Verbal: Oriented Jennifer Coma Scale Motor: Obeys Commands Jennifer Coma Scale Total: 15 Speech: Normal Motor strength normal: LUE, RUE, LLE, RLE Sensory: Normal - Psychological Associated symptoms: Normal affect, Normal mood - Skin Skin Temperature: Warm Skin Moisture: Dry Skin Color: Normal Course - Re-evaluation Re-evalutation: 02/28/18 20:37 X-rays were reviewed with patient before she was discharged. There were no acute injuries noted on x-rays. Patient was offered Omid wrap and stirrup splint and crutches. She states she had stirrup splint and crutches at home. She did except the Omid wrap. Patient was instructed to follow-up with orthopedics if she continued to have pain. Patient verbalized understanding of instructions. - Vital Signs Vital signs: Temp Pulse Resp BP Pulse Ox 98.1 F 87 16 122/87 H 100 02/28/18 16:33 02/28/18 16:33 18 16:33 18 16:33 02/28/18 16:33 - Diagnostic Test Radiology reviewed: Image reviewed, Reports reviewed Procedures - Immobilization Right Ankle Time completed: 16:22 Immobilizer type: Omid wrap Performed by: PCT Post-Proc Neuro Vasc Exam: Normal Alignment checked and good: Yes Discharge - Discharge Clinical Impression: Right ankle sprain Qualifiers: Encounter type: subsequent encounter Involved ligament of ankle: unspecified ligament Qualified Code(s): S93.401D - Sprain of unspecified ligament of right ankle, subsequent encounter Right foot sprain Qualifiers: Encounter type: subsequent encounter Qualified Code(s): S93.601D - Unspecified sprain of right foot, subsequent encounter Condition: Stable Disposition: HOME, SELF-CARE Additional Instructions: SPRAINED ANKLE: Your sprained ankle results from stretching or tearing of the ligaments which support the ankle. This usually results from twisting the foot inward and under. The ligaments will require time and protection in order to heal properly. Many ankle sprains are quite disabling, and should be taken seriously. The usual treatment for an ankle sprain is cold packs; protection with tape , splints, or wraps; elevation; and staying off the ankle for at least a day. As the ankle improves, you can walk IF it's not painful to bear weight. Sports are best postponed until healing is complete. More serious sprains usually require strengthening exercises after early healing. Your physician has assessed the seriousness of the ligament injury to your ankle. However, the treatment may change, depending on how your ankle progresses. If further exams were recommended, it is important that you follow through. Call the doctor if your foot becomes numb, painful, or severely swollen. you are unable to use the ankle comfortably in the splint, return for re- evaluation. OMID WRAP: A compression dressing (omid wrap) has been placed. This helps hold the area still. It limits swelling and internal bleeding. The wrap should be comfortably snug -- not tight. You should feel a sense of pressure, but not severe pain under the wrap. Unless the physician tells you otherwise, you can adjust the wrap for comfort. If the wrap causes symptoms suggesting it's too tight -- uncomfortable pressure, swelling or discoloration beyond the wrap, numbness, or severe pain - - you must loosen the wrap. If these symptoms don't resolve promptly, return for re-evaluation. ICE & ELEVATION: Apply ice packs frequently against the painful area. Many different schedules are recommended, such as "20 minutes on, 20 minutes off" or "one hour ice, two hours rest." If you need to work, you may need to go longer between ice treatments. You should plan to have the area ice packed AT LEAST one- fourth of the time. The ice should be applied over the wrap, tape, or splint, or over a layer of cloth -- not directly against the skin. Some ice bags have a built-in cloth and can be put directly on the skin. Your injured part should be elevated as much as possible over the next 48 hours. Try to keep the injury above the level of the heart. Avoid use of the injured area. Elevation and rest will decrease the swelling. USE OF [id number] IBUPROFEN: Ibuprofen (Advil, Nuprin, Medipren, Motrin IB) is a medication for fever and pain control. In addition, it has anti- inflammatory effects which may be beneficial, especially in the treatment of injuries. It's best to take ibuprofen with food. Persons with ulcer disease or allergy to aspirin should notify their physician of this before taking ibuprofen. Ibuprofen can be given every four to six hours, for a total of four doses daily. Age Pain or fever dose Antiinflammatory dose 6-8 yr 200 mg (1 tab) 200 mg (1 tab) 9-11 yr 200 mg (1 tab) 200-400 mg (1-2 tab) 11-14 yr 200-400 mg (1-2 tab) 400 mg (2 tab) 15-adult 400 mg (2 tab) 600 mg (3 tab) FOLLOW-UP CARE: If you have been referred to a physician for follow-up care, call the physician s office for an appointment as you were instructed or within the next two days. If you experience worsening or a significant change in your symptoms, notify the physician immediately or return to the Emergency Department at any time for re-evaluation. Forms: Return to Work Referrals: VIDHYA WELCH PA-C [PHYSICIAN VOCATIONAL EDUCATION PROFESSIONAL] - Follow up as needed DENISE ZHANG MD [ACTIVE STAFF] - Follow up as needed
--- NOTE | 2018-02-28 15:46 | RADIOLOGY REPORT (SQ) ---
EXAM DESCRIPTION: FOOT RIGHT COMPLETE COMPLETED DATE/TIME: 02/28/2018 3:29 pm REASON FOR STUDY: fell friday had xray but pain worse COMPARISON: 02/24/2018 NUMBER OF VIEWS: Three views. TECHNIQUE: AP, lateral and oblique radiographic images acquired of the right foot. LIMITATIONS: None. FINDINGS: MINERALIZATION: Normal. BONES: No acute fracture or dislocation. No worrisome bone lesions. Incidental note is made of a ti ny plantar enthesophyte. JOINTS: No effusions. SOFT TISSUES: No soft tissue swelling. No foreign body. OTHER: No other significant finding. IMPRESSION: NEGATIVE STUDY OF THE RIGHT FOOT. NO RADIOGRAPHIC EVIDENCE OF ACUTE OR SUBACUTE INJURY. TECHNICAL DOCUMENTATION: JOB ID: [id number] [employer]- All Rights Reserved Reading location - IP/workstation name: [email or web address]
--- NOTE | 2018-02-28 15:47 | RADIOLOGY REPORT (SQ) ---
EXAM DESCRIPTION: ANKLE RIGHT COMPLETE COMPLETED DATE/TIME: 02/28/2018 3:29 pm REASON FOR STUDY: fell friday had xray but pain worse COMPARISON: 02/24/2018 NUMBER OF VIEWS: Three views. TECHNIQUE: AP, lateral, and oblique radiographic images acquired of the right ankle. LIMITATIONS: None. FINDINGS: MINERALIZATION: Normal. BONES: No acute fracture or dislocation. No worrisome bone lesions. Incidental note is made of a ti ny plantar enthesophyte. JOINTS: No effusions. SOFT TISSUES: No soft tissue swelling. No foreign body. OTHER: No other significant finding. IMPRESSION: NEGATIVE STUDY OF THE RIGHT ANKLE. NO RADIOGRAPHIC EVIDENCE OF ACUTE OR SUBACUTE INJURY. TECHNICAL DOCUMENTATION: JOB ID: [id number] [employer]- All Rights Reserved Reading location - IP/workstation name: [email or web address]
[2018-02-28 16:34] VITALS: BP 122/87
== END 2018-02-28 16:36 | disposition home or self-care (01) ==
LOC: ER 13:45
DX: S93.401A Sprain of unspecified ligament of right ankle, initial encounter (principal); S93.601A Unspecified sprain of right foot, initial encounter; W19.XXXA Unspecified fall, initial encounter; Y99.0 Civilian activity done for income or pay; J45.909 Unspecified asthma, uncomplicated
CPT/HCPCS: 99283

== ENCOUNTER 2018-08-10 16:16 | Emergency (ER) | payer MEDICAID, OTHER ==
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
[2018-08-10] MEDS ORDERED: KETOROLAC TROMETHAMINE 60 MG/2 ML SDV IM ONE (18:23)
[2018-08-10 18:44] VITALS: BP 117/75
== END 2018-08-10 19:00 | disposition home or self-care (01) ==
LOC: ER 16:16
DX: S13.4XXA Sprain of ligaments of cervical spine, initial encounter (principal); M54.2 Cervicalgia; Y04.8XXA Assault by other bodily force, initial encounter; Y99.0 Civilian activity done for income or pay; J45.909 Unspecified asthma, uncomplicated
CPT/HCPCS: 99284; 96372; 72125; J1885

== ENCOUNTER 2018-09-10 20:59 | Emergency (ER) | payer MEDICAID, OTHER ==
[2018-09-10] MEDS ORDERED: IPRATROPIUM/ALBUTEROL 0.5-2.5 MG/3 ML AMPUL NEB ONE (22:31)
[2018-09-10] MEDS ORDERED: PREDNISONE 20 MG TABLET PO ONE (22:31)
--- NOTE | 2018-09-10 22:33 | ER Document Report ---
ED Medical Screen (RME) - General Chief Complaint: Breathing Difficulty Stated Complaint: DIFFICULTY BREATHING,CHEST TIGHTNESS Time Seen by Provider: 09/10/18 22:31 Notes: 33-year-old asthmatic female with chief complaint of cough, wheezing for the past 4 days, yesterday she developed a fever, fever has been up to 102. She has not had a flu shot. She has had sick contacts at home. She has not a smoker. TRAVEL OUTSIDE OF THE [place] IN LAST 30 DAYS: No - Related Data Allergies/Adverse Reactions: No Known Allergies Allergy (Verified 02/28/18 13:50) Past Medical History - Past Medical History Cardiac Medical History: Reports: Hx Hypercholesterolemia Pulmonary Medical History: Reports: Hx Asthma, Hx Bronchitis Renal/ Medical History: Reports: Hx Kidney Stones, Hx Ovarian Cysts. Denies: Hx Peritoneal Dialysis Musculoskeltal Medical History: Reports Hx Musculoskeletal Trauma Psychiatric Medical History: Reports: Hx Anxiety Past Surgical History: Reports: Hx Appendectomy, Hx Cardiac Surgery - x1, Hx Section - x1, Hx Cholecystectomy, Hx Gynecologic Surgery - ovarian cyst removal, Hx Myringotomy, Hx Tubal Ligation, Hx Umbilical Hernia - Immunizations Immunizations up to date: Yes Hx Diphtheria, Pertussis, Tetanus Vaccination: Yes Physical Exam - Vital signs Vitals: Temp Pulse Resp BP Pulse Ox 97.7 F 97 20 125/79 99 09/10/18 21:32 09/10/18 21:32 09/10/18 21:32 09/10/18 21:32 09/10/18 21:32 - Respiratory Respiratory status: No respiratory distress. No: Labored, Tachypnea Breath sounds: Other - A few coarse scattered breath sounds, no overt wheezing or rhonchi. Frequent heavy coughing episodes Course - Re-evaluation Re-evalutation: I have greeted and performed a rapid initial assessment of this patient. A comprehensive ED assessment and evaluation of the patient, analysis of test results and completion of the medical decision making process will be conducted by additional ED providers. - Vital Signs Vital signs: Temp Pulse Resp BP Pulse Ox 97.7 F 97 20 125/79 99 09/10/18 21:32 09/10/18 21:32 09/10/18 21:32 09/10/18 21:32 09/10/18 21:32 Doctor's Discharge - Discharge Referrals: MACK,KINZA, [facility] [Primary Care Provider] - Follow up as needed
--- NOTE | 2018-09-10 23:08 | RADIOLOGY REPORT (SQ) ---
EXAM DESCRIPTION: XR CHEST 2 VIEWS COMPLETED DATE/TME: 09/10/2018 22:31 CLINICAL HISTORY: 33 years, Female, fever, cough x 4 days COMPARISON: 08/10/2017 chest NUMBER OF VIEWS: 2 TECHNIQUE: Frontal and lateral views of the chest LIMITATIONS: None. FINDINGS: The heart size is normal. Lungs are clear. No pneumothorax IMPRESSION: Negative chest copyright 2010 [employer]- All Rights Reserved
[2018-09-10 23:22] LABS: A TYPE INFLUENZA AG NEGATIVE (NEGATIVE); B INFLUENZA AG NEGATIVE (NEGATIVE)
--- NOTE | 2018-09-11 00:12 | ER Document Report ---
ED General - General Chief Complaint: Breathing Difficulty Stated Complaint: DIFFICULTY BREATHING,CHEST TIGHTNESS Time Seen by Provider: 09/10/18 22:31 TRAVEL OUTSIDE OF THE [place] IN LAST 30 DAYS: No - HPI Notes: Patient is a 33-year-old female that presents to the emergency department for chief complaint of cough. Patient reports cough for the last few days. She states that she has had a fever yesterday of 102. She has not taken any antipyretics today and has not had a fever today. She does have asthma and states she has been using her Advair inhaler 4 times a day. She has been using a DuoNeb at home 3 times a day. She has not been using her albuterol rescue inhaler. Patient denies being admitted to the hospital in the past for her asthma. Past Medical History: Asthma Past Surgical History: Negative Social History: Denies drugs alcohol and tobacco Family History: Reviewed and noncontributory for presenting illness Allergies: Reviewed, see documented allergy list. REVIEW OF SYSTEMS: CONSTITUTIONAL : fever No chills No diaphoresis No recent illness EENT: No vision changes No congestion No sore throat CARDIOVASCULAR: No chest pain No palpitations RESPIRATORY: No shortness of breath cough No difficulty breathing GASTROINTESTINAL: No abdominal pain No nausea No vomiting No diarrhea GENITOURINARY: No dysuria No hematuria No difficulty urinating MUSCULOSKELETAL: No back pain No leg pain No arm pain SKIN: No rashes No lesions LYMPHATIC: No swollen, enlarged glands. NEUROLOGICAL: No lightheadedness No headache No weakness No paresthesias PSYCHIATRIC: No anxiety No depression PHYSICAL EXAMINATION: Vital signs reviewed, nursing noted reviewed. GENERAL: Well-appearing, well-nourished and in no acute distress. HEAD: Atraumatic, normocephalic. EYES: Eyes appear normal, extraocular movements intact, sclera anicteric, conjunctiva are normal. ENT: Nasal mucosal edema, rhinorrhea, oropharynx clear without exudates. Moist mucous membranes. NECK: Normal range of motion, supple without lymphadenopathy LUNGS: Bilateral end expiratory wheezing, no accessory muscle use, dry cough HEART: Regular rate and rhythm without murmurs ABDOMEN: Soft, nontender, normoactive bowel sounds. No rebound, guarding, or rigidity. No masses appreciated. EXTREMITIES: Nontender, good range of motion, no pitting or edema. NEUROLOGICAL: No focal neurological deficits. Moves all extremities spontaneously Motor and sensory grossly intact on exam. PSYCH: Normal mood, normal affect. SKIN: Warm, Dry, normal turgor, no rashes or lesions noted on exposed skin - Related Data Allergies/Adverse Reactions: No Known Allergies Allergy (Verified 02/28/18 13:50) Past Medical History - Social History Smoking Status: Never Smoker Frequency of alcohol use: Rare Drug Abuse: None Family History: Reviewed & Not Pertinent, Arthritis, DM, Hyperlipidemia, Hypertension, Malignancy Patient has suicidal ideation: No Patient has homicidal ideation: No - Past Medical History Cardiac Medical History: Reports: Hx Hypercholesterolemia Pulmonary Medical History: Reports: Hx Asthma, Hx Bronchitis Renal/ Medical History: Reports: Hx Kidney Stones, Hx Ovarian Cysts. Denies: Hx Peritoneal Dialysis Musculoskeletal Medical History: Reports Hx Musculoskeletal Trauma Psychiatric Medical History: Reports: Hx Anxiety Past Surgical History: Reports: Hx Appendectomy, Hx Cardiac Surgery - x1, Hx Section - x1, Hx Cholecystectomy, Hx Gynecologic Surgery - ovarian cyst removal, Hx Myringotomy, Hx Tubal Ligation, Hx Umbilical Hernia - Immunizations Immunizations up to date: Yes Hx Diphtheria, Pertussis, Tetanus Vaccination: Yes Physical Exam - Vital signs Vitals: Temp Pulse Resp BP Pulse Ox 97.7 F 97 20 125/79 99 09/10/18 21:32 09/10/18 21:32 09/10/18 21:32 09/10/18 21:32 09/10/18 21:32 Course - Re-evaluation Re-evalutation: 09/11/18 00:10 Vitals reviewed. Nursing notes reviewed. Patient's chest x-ray shows no acute pneumonia. Her influenza is negative. She is afebrile and in no acute respiratory distress. She did have improvement after aerosols in the emergency room. Patient will be started on prednisone. She will continue using her home DuoNeb, albuterol, and Advair as directed. She will return for new or worsening symptoms. She will follow with primary care in the next few days for r eevaluation as needed. Laboratory 09/10/18 22:42 Influenza A (Rapid) NEGATIVE Influenza B (Rapid) NEGATIVE Chest X-Ray 09/10/18 22:31 IMPRESSION: Negative chest copyright 2010 [employer]- All Rights Reserved - Vital Signs Vital signs: Temp Pulse Resp BP Pulse Ox 97.7 F 97 20 125/79 99 09/10/18 21:32 09/10/18 21:32 09/10/18 21:32 09/10/18 21:32 09/10/18 21:32 Discharge - Discharge Clinical Impression: Asthma exacerbation Qualifiers: Asthma severity: mild Asthma persistence: intermittent Qualified Code(s): J45.21 - Mild intermittent asthma with (acute) exacerbation URI (upper respiratory infection) Qualifiers: URI type: unspecified URI Qualified Code(s): J06.9 - Acute upper respiratory infection, unspecified Condition: Stable Disposition: HOME, SELF-CARE Instructions: Upper Respiratory Illness ([facility]), Asthma ([facility]) Additional Instructions: Please return to the emergency department if you have any worsening, or concern of your symptoms. Please return to the emergency department if you develop chest pain, difficulty breathing, severe abdominal pain, or ongoing vomiting. Please follow-up with your primary care physician in 2-3 days and any other recommended physicians. If prescribed, take all medications as directed. If you have any questions or concerns do not hesitate to return the emergency department for evaluation. Take ibuprofen or Tylenol at home as needed for fevers Begin taking the prednisone prescription on, 09/11/18 use your albuterol inhaler 2 puffs every 4 hours as needed for Cough and shortness of breath Prescriptions: Prednisone [Deltasone 20 mg Tablet] 2 tab PO DAILY 5 Days tablet Forms: Return to Work Referrals: KINZA MACK FNP-C [Primary Care Provider] - Follow up in 3-5 days
[2018-09-11 01:35] VITALS: BP 120/76
--- NOTE | 2018-09-11 14:54 | EKG REPORT ---
SEVERITY:- BORDERLINE ECG - SINUS RHYTHM BORDERLINE REPOL ABNORMALITY, ANT-LAT LEADS : Confirmed by: Butch Paulson 11-Sep-2018 14:53:42
== END 2018-09-11 01:35 | disposition home or self-care (01) ==
LOC: ER 20:59
DX: J45.21 Mild intermittent asthma with (acute) exacerbation (principal); J06.9 Acute upper respiratory infection, unspecified; R05 Cough; J34.89 Other specified disorders of nose and nasal sinuses; Z79.899 Other long term (current) drug therapy
CPT/HCPCS: 93005; 94640; 99285; 87804; 71046; 93010; J7512; J7620

== ENCOUNTER 2018-10-10 08:41 | Emergency (ER) | payer MEDICAID ==
[2018-10-10] MEDS ORDERED: DIPHENHYDRAMINE HCL 25 MG CAPSULE PO ONE (10:06)
[2018-10-10] MEDS ORDERED: ONDANSETRON 4 MG TAB.RAPDIS PO ONE (10:06)
[2018-10-10] MEDS ORDERED: PROCHLORPERAZINE MALEATE 10 MG TABLET PO ONE (10:06)
[2018-10-10] MEDS ORDERED: KETOROLAC TROMETHAMINE 60 MG/2 ML SDV IM ONE (10:06)
--- NOTE | 2018-10-10 10:09 | ER Document Report ---
ED Headache - General Chief Complaint: Headache Stated Complaint: HEADACHE Time Seen by Provider: 10/10/18 10:00 Primary Care Provider: KINZA MACK FNP-C [Primary Care Provider] - Follow up as needed Mode of Arrival: Ambulatory Information source: Patient, REPLACED BY [facility] Records Notes: 33-year-old female patient reports onset yesterday of aching all over, and migraine headache which is a throbbing pulsatile type headache. She reports her last migraine headache was about 6 months ago and this is quite similar to her previous migraines. She has some nausea without vomiting. She does have some light sensitivity and noise sensitivity. She took Excedrin Migraine about 4 AM this morning without relief. She has no URI symptoms. TRAVEL OUTSIDE OF THE [place] IN LAST 30 DAYS: No - Related Data Allergies/Adverse Reactions: No Known Allergies Allergy (Verified 02/28/18 13:50) Past Medical History - General Information source: Patient, REPLACED BY [facility] Records - Social History Smoking Status: Never Smoker Cigarette use (# per day): No Chew tobacco use (# tins/day): No Smoking Education Provided: No Frequency of alcohol use: Occasional Drug Abuse: None Occupation: Works with [employer] with: Family Family History: Reviewed & Not Pertinent, Arthritis, DM, Hyperlipidemia, Hypertension, Malignancy Patient has suicidal ideation: No Patient has homicidal ideation: No - Past Medical History Cardiac Medical History: Reports: Hx Hypercholesterolemia Pulmonary Medical History: Reports: Hx Asthma, Hx Bronchitis Neurological Medical History: Reports: Hx Migraine Renal/ Medical History: Reports: Hx Kidney Stones, Hx Ovarian Cysts Musculoskeletal Medical History: Reports Hx Musculoskeletal Trauma Psychiatric Medical History: Reports: Hx Anxiety Past Surgical History: Reports: Hx Appendectomy, Hx Cardiac Surgery - x1, Hx Section - x1, Hx Cholecystectomy, Hx Gynecologic Surgery - ovarian cyst removal, Hx Myringotomy, Hx Tubal Ligation, Hx Umbilical Hernia - Immunizations Immunizations up to date: Yes Hx Diphtheria, Pertussis, Tetanus Vaccination: Yes Review of Systems - Review of Systems Constitutional: No symptoms reported EENT: No symptoms reported Cardiovascular: No symptoms reported Respiratory: No symptoms reported Gastrointestinal: No symptoms reported Genitourinary: No symptoms reported Female Genitourinary: No symptoms reported, Last menstrual period - 09/24/18 Musculoskeletal: No symptoms reported Skin: No symptoms reported Hematologic/Lymphatic: No symptoms reported Neurological/Psychological: See HPI, Headaches Physical Exam - Vital signs Vitals: Temp Pulse Resp BP Pulse Ox 98.1 F 88 16 133/90 H 100 10/10/18 08:45 10/10/18 08:45 10/10/18 08:45 10/10/18 08:45 10/10/18 08:45 Interpretation: Normal - Notes Notes: PHYSICAL EXAMINATION: GENERAL: Sitting in chair with sunglasses on to help block out the light. HEAD: Atraumatic, normocephalic. EYES: Pupils equal round and reactive to light, extraocular movements intact, sclera anicteric, conjunctiva are normal. ENT: nares patent, oropharynx clear without exudates. Moist mucous membranes. NECK: Normal range of motion, supple without lymphadenopathy LUNGS: Breath sounds clear to auscultation bilaterally and equal. No wheezes rales or rhonchi. HEART: Regular rate and rhythm without murmurs ABDOMEN: Soft, nontender, normoactive bowel sounds. No guarding, no rebound. No masses appreciated. EXTREMITIES: Normal range of motion, no pitting or edema. No cyanosis. NEUROLOGICAL: Cranial nerves grossly intact. Normal speech, normal gait. Normal sensory, motor, and reflex exams. PSYCH: Normal mood, normal affect. SKIN: Warm, Dry, normal turgor, no rashes or lesions noted. Course - Vital Signs Vital signs: Temp Pulse Resp BP Pulse Ox 98.1 F 88 16 133/90 H 100 10/10/18 08:45 10/10/18 08:45 10/10/18 08:45 10/10/18 08:45 10/10/18 08:45 Discharge - Discharge Clinical Impression: Migraine headache Qualifiers: Migraine type: unspecified Status migrainosus presence: without status mi grainosus Intractability: not intractable Qualified Code(s): G43.909 - Migraine, unspecified, not intractable, without status migrainosus Referrals: KINZA MACK FNP-C [Primary Care Provider] - Follow up as needed
--- NOTE | 2018-10-10 11:23 | ER Document Report ---
ED Medical Screen (RME) - General Chief Complaint: Headache Stated Complaint: HEADACHE Time Seen by Provider: 10/10/18 10:00 Primary Care Provider: KINZA MACK FNP-C [Primary Care Provider] - Follow up as needed Mode of Arrival: Ambulatory Notes: 33-year-old female patient with migraine headache that started yesterday. She has light and sound sensitivity. She was given Toradol, Compazine, Benadryl, and Zofran and triage. After 1 hour she states she is not really experience any improvement, so she will be moved to the main ED for further evaluation. She did drive herself here today and has a child with her. I have greeted and performed a rapid initial assessment of this patient. A comprehensive ED assessment and evaluation of the patient, analysis of test results and completion of the medical decision making process will be conducted by additional ED providers. TRAVEL OUTSIDE OF THE [place] IN LAST 30 DAYS: No - Related Data Allergies/Adverse Reactions: No Known Allergies Allergy (Verified 02/28/18 13:50) Past Medical History - Social History Cigarette use (# per day): No Chew tobacco use (# tins/day): No Frequency of alcohol use: Occasional Drug Abuse: None - Past Medical History Cardiac Medical History: Reports: Hx Hypercholesterolemia Pulmonary Medical History: Reports: Hx Asthma, Hx Bronchitis Neurological Medical History: Reports: Hx Migraine Renal/ Medical History: Reports: Hx Kidney Stones, Hx Ovarian Cysts. Denies: Hx Peritoneal Dialysis Musculoskeltal Medical History: Reports Hx Musculoskeletal Trauma Psychiatric Medical History: Reports: Hx Anxiety Past Surgical History: Reports: Hx Appendectomy, Hx Cardiac Surgery - x1, Hx Section - x1, Hx Cholecystectomy, Hx Gynecologic Surgery - ovarian cyst removal, Hx Myringotomy, Hx Tubal Ligation, Hx Umbilical Hernia - Immunizations Immunizations up to date: Yes Hx Diphtheria, Pertussis, Tetanus Vaccination: Yes Physical Exam - Vital signs Vitals: Temp Pulse Resp BP Pulse Ox 98.1 F 88 16 133/90 H 100 10/10/18 08:45 10/10/18 08:45 10/10/18 08:45 10/10/18 08:45 10/10/18 08:45 Course - Vital Signs Vital signs: Temp Pulse Resp BP Pulse Ox 98.1 F 88 16 133/90 H 100 10/10/18 08:45 10/10/18 08:45 10/10/18 08:45 10/10/18 08:45 10/10/18 08:45 Doctor's Discharge - Discharge Clinical Impression: Migraine headache Qualifiers: Migraine type: unspecified Status migrainosus presence: without status migrainosus Intractability: not intractable Qualified Code(s): G43.909 - Migraine, unspecified, not intractable, without status migrainosus Referrals: KINZA MACK FNP-C [Primary Care Provider] - Follow up as needed
[2018-10-10] MEDS ORDERED: ACETAMINOPHEN 325 MG TABLET PO ONE (13:11)
[2018-10-10] MEDS ORDERED: BUTALB/ACETAMINOPHEN/CAFFEINE 1 TAB EACH PO ONE (13:22)
--- NOTE | 2018-10-10 13:26 | ER Document Report ---
ED General - General Chief Complaint: Headache Stated Complaint: HEADACHE Time Seen by Provider: 10/10/18 10:00 Primary Care Provider: KINZA MACK FNP-C [Primary Care Provider] - Follow up as needed Mode of Arrival: Ambulatory TRAVEL OUTSIDE OF THE [place] IN LAST 30 DAYS: No - HPI Patient complains to provider of: Headache Notes: Patient coming in for evaluation of headache was seen by her triage provider his notes provided below 3-year-old female patient with migraine headache that started yesterday. She has light and sound sensitivity. She was given Toradol, Compazine, Benadryl, and Zofran and triage. After 1 hour she states she is not really experience any improvement, so she will be moved to the main ED for further evaluation. She did drive herself here today and has a child with her. Upon my evaluation patient states that she is still having the throbbing behind her right eye. Patient states similar to headaches in the past. No nausea no vomiting no history of trauma patient was able to drive herself here to the ER. Patient denies any chest pain abdominal pain. Patient stating that she does not have a ride home and will have to drive herself home - Related Data Allergies/Adverse Reactions: No Known Allergies Allergy (Verified 02/28/18 13:50) Past Medical History - General Information source: Patient, [facility] Records - Social History Smoking Status: Never Smoker Cigarette use (# per day): No Chew tobacco use (# tins/day): No Frequency of alcohol use: Occasional Drug Abuse: None Occupation: Works with mentally challenged at [employer] Lives with: Family Family History: Reviewed & Not Pertinent, Arthritis, DM, Hyperlipidemia, Hypertension, Malignancy Patient has suicidal ideation: No Patient has homicidal ideation: No - Past Medical History Cardiac Medical History: Reports: Hx Hypercholesterolemia Pulmonary Medical History: Reports: Hx Asthma, Hx Bronchitis Neurological Medical History: Reports: Hx Migraine Renal/ Medical History: Reports: Hx Kidney Stones, Hx Ovarian Cysts. Denies: Hx Peritoneal Dialysis Musculoskeletal Medical History: Reports Hx Musculoskeletal Trauma Psychiatric Medical History: Reports: Hx Anxiety Past Surgical History: Reports: Hx Appendectomy, Hx Cardiac Surgery - x1, Hx Section - x1, Hx Cholecystectomy, Hx Gynecologic Surgery - ovarian cyst removal, Hx Myringotomy, Hx Tubal Ligation, Hx Umbilical Hernia - Immunizations Immunizations up to date: Yes Hx Diphtheria, Pertussis, Tetanus Vaccination: Yes Review of Systems - Review of Systems Constitutional: No symptoms reported EENT: No symptoms reported Cardiovascular: No symptoms reported Respiratory: No symptoms reported Gastrointestinal: No symptoms reported Genitourinary: No symptoms reported Female Genitourinary: No symptoms reported Musculoskeletal: No symptoms reported Skin: No symptoms reported Hematologic/Lymphatic: No symptoms reported Neurological/Psychological: Headaches -: Yes All other systems reviewed and negative Physical Exam - Vital signs Vitals: Temp Pulse Resp BP Pulse Ox 98.1 F 88 16 133/90 H 100 10/10/18 08:45 10/10/18 08:45 10/10/18 08:45 10/10/18 08:45 10/10/18 08:45 Interpretation: Normal - General General appearance: Appears well, Alert - HEENT Head: Normocephalic, Atraumatic Eyes: Normal Conjunctiva: Normal Cornea: Normal Extraocular movements intact: Yes Pupils: PERRL - Respiratory Respiratory status: No respiratory distress Chest status: Nontender Breath sounds: Normal Chest palpation: Normal - Cardiovascular Rhythm: Regular Heart sounds: Normal auscultation Murmur: No - Abdominal Inspection: Normal Distension: No distension Bowel sounds: Normal Tenderness: Nontender Organomegaly: No organomegaly - Back Back: Normal, Nontender - Extremities General upper extremity: Normal inspection, Nontender, Normal color, Normal ROM, Normal temperature General lower extremity: Normal inspection, Nontender, Normal color, Normal ROM, Normal temperature, Normal weight bearing. No: Rachelle's sign - Neurological Neuro grossly intact: Yes Cognition: Normal Orientation: AAOx4 [place] Coma Scale Eye Opening: Spontaneous Jennifer Coma Scale Verbal: Oriented [place] Coma Scale Motor: Obeys Commands Jennifer Coma Scale Total: 15 Speech: Normal Motor strength normal: LUE, RUE, LLE, RLE Sensory: Normal - Psychological Associated symptoms: Normal affect, Normal mood - Skin Skin Temperature: Warm Skin Moisture: Dry Skin Color: Normal Course - Re-evaluation Re-evalutation: 10/10/18 15:29 The patient presents with headache without signs of ROSTER CLERK bleed, stroke, in fection, or other serious etiology. The patient is neurologically intact. Given the extremely low risk of these diagnoses further testing and evaluation for these possibilities does not appear to be indicated at this time. The patient has been instructed to return if the symptoms worsen or change in any way.. Patient received a headache cocktail with minimal relief in her symptoms. Patient drove herself here to the ER with her child I had a long discussion with the patient that at this time other than administering Tylenol orally I do not have another medication I can give her that would not cause sedation that was allow her to drive home and they recommend a trial of Fioricet at home explained to the patient that we would give her a pill here and she can take it when she arrived safely in her household. Patient agrees with this plan patient be discharged home - Vital Signs Vital signs: Temp Pulse Resp BP Pulse Ox 98.1 F 79 16 126/79 H 100 10/10/18 13:38 10/10/18 13:38 10/10/18 13:38 10/10/18 13:38 10/10/18 13:38 Discharge - Discharge Clinical Impression: Migraine headache Qualifiers: Migraine type: unspecified Status migrainosus presence: without status migrainosus Intractability: not intractable Qualified Code(s): G43.909 - Migraine, unspecified, not intractable, without status migrainosus Disposition: HOME, SELF-CARE Instructions: Headache ([facility]), Toradol Injection ([facility]) Additional Instructions: Your evaluation today is consistent with a headache. You are given multiple medications here in the ER "a headache cocktail" for your migraine. You have stated a wish to drive home any further medications are sedating therefore we did not administer those here in the ER. I would recommend taking the Fioricet that we gave you here in the ER 1 tablet every 6 hours as needed for headache may also continue with Motrin or Tylenol for your headache return to the ER symptoms worsen Prescriptions: Butalb/Acetaminophen/Caffeine [Fioricet 50-300-40 mg Capsule] 1 cap PO Q6 #8 cap Forms: Return to Work Referrals: KINZA MACK FNP-C [Primary Care Provider] - Follow up as needed
[2018-10-10 13:43] VITALS: BP 126/79
== END 2018-10-10 13:43 | disposition home or self-care (01) ==
LOC: ER 08:41
DX: G43.909 Migraine, unspecified, not intractable, without status migrainosus (principal); J45.909 Unspecified asthma, uncomplicated
CPT/HCPCS: 99283; 96372; J3490 ×3; J1885; S0119; S0183

== ENCOUNTER 2018-12-06 13:32 | Emergency (ER) | payer MEDICAID ==
[2018-12-06 13:46] VITALS: BP 128/79
[2018-12-06] MEDS ORDERED: BUTALB/ACETAMINOPHEN/CAFFEINE 1 TAB EACH PO ONE (14:40)
--- NOTE | 2018-12-06 14:47 | ER Document Report ---
ED General - General Chief Complaint: Headache Stated Complaint: HEADACHE Time Seen by Provider: 12/06/18 14:31 Primary Care Provider: KINZA MACK FNP-C [Primary Care Provider] - Follow up as needed TRAVEL OUTSIDE OF THE [place] IN LAST 30 DAYS: No - HPI Patient complains to provider of: Headache Notes: Patient with history of chronic headaches patient states headache last few days notices that her headache seems to exacerbate more often whenever there is change in seasons. Patient states she tried her headache medication and Imitrex at home however no relief therefore came to the ER for further evaluation. Patient drove herself to the ER. Patient states photophobia. Patient otherwise looks to be no obvious distress. Patient states no significant changes in her chronic headaches. Denies any trauma denies any fevers chills nausea vomiting or diarrhea. Patient is resting comfortably. Patient was recently seen by this provider discharged home with Fioricet. Patient states Fioricet did relieve her headache. A brief review of the patient's past medical records available in [facility] was performed - Related Data Allergies/Adverse Reactions: No Known Allergies Allergy (Verified 12/06/18 13:38) Past Medical History - Social History Smoking Status: Never Smoker Family History: Reviewed & Not Pertinent, Arthritis, DM, Hyperlipidemia, Hypertension, Malignancy Patient has suicidal ideation: No Patient has homicidal ideation: No - Past Medical History Cardiac Medical History: Reports: Hx Hypercholesterolemia Pulmonary Medical History: Reports: Hx Asthma, Hx Bronchitis Neurological Medical History: Reports: Hx Migraine Renal/ Medical History: Reports: Hx Kidney Stones, Hx Ovarian Cysts. Denies: Hx Peritoneal Dialysis Musculoskeletal Medical History: Reports Hx Musculoskeletal Trauma Psychiatric Medical History: Reports: Hx Anxiety Past Surgical History: Reports: Hx Appendectomy, Hx Cardiac Surgery - x1, Hx Section - x1, Hx Cholecystectomy, Hx Gynecologic Surgery - ovarian cyst removal, Hx Myringotomy, Hx Tubal Ligation, Hx Umbilical Hernia - Immunizations Immunizations up to date: Yes Hx Diphtheria, Pertussis, Tetanus Vaccination: Yes Review of Systems - Review of Systems Constitutional: No symptoms reported EENT: No symptoms reported Cardiovascular: No symptoms reported Respiratory: No symptoms reported Gastrointestinal: No symptoms reported Genitourinary: No symptoms reported Female Genitourinary: No symptoms reported Musculoskeletal: No symptoms reported Skin: No symptoms reported Hematologic/Lymphatic: No symptoms reported Neurological/Psychological: Headaches -: Yes All other systems reviewed and negative Physical Exam - Vital signs Vitals: Temp Pulse Resp BP Pulse Ox 98.7 F 67 16 128/79 H 99 12/06/18 13:44 12/06/18 13:44 12/06/18 13:44 12/06/18 13:44 12/06/18 13:44 Interpretation: Normal - General General appearance: Appears well, Alert - HEENT Head: Normocephalic, Atraumatic Eyes: Normal Pupils: PERRL - Respiratory Respiratory status: No respiratory distress Chest status: Nontender Breath sounds: Normal Chest palpation: Normal - Cardiovascular Rhythm: Regular Heart sounds: Normal auscultation Murmur: No - Abdominal Inspection: Normal Distension: No distension Bowel sounds: Normal Tenderness: Nontender Organomegaly: No organomegaly - Back Back: Normal, Nontender - Extremities General upper extremity: Normal inspection, Nontender, Normal color, Normal ROM, Normal temperature General lower extremity: Normal inspection, Nontender, Normal color, Normal ROM, Normal temperature, Normal weight bearing. No: Rachelle's sign - Neurological Neuro grossly intact: Yes Cognition: Normal Orientation: AAOx4 [place] Coma Scale Eye Opening: Spontaneous [place] Coma Scale Verbal: Oriented [place] Coma Scale Motor: Obeys Commands [place] Coma Scale Total: 15 Speech: Normal Motor strength normal: LUE, RUE, LLE, RLE Sensory: Normal Knee - Reflex grade: 2 = Normal - Psychological Associated symptoms: Normal affect, Normal mood - Skin Skin Temperature: Warm Skin Moisture: Dry Skin Color: Normal Course - Re-evaluation Re-evalutation: 12/06/18 15:37 The patient presents with headache without signs of EDGE BRUSHER bleed, stroke, infection, or other serious etiology. The patient is neurologically intact. Given the extremely low risk of these diagnoses further testing and evaluation for these possibilities does not appear to be indicated at this time. The patient has been instructed to return if the symptoms worsen or change in any way.. 12/06/18 15:37 Offered IV hydration IV medications to the patient however did explain to the patient that she does not have a ride home will have to limit her medication treatment with nonsedating medications. Patient does state that she received relief with Fioricet last time. Did offer Fioricet to the patient. Patient states she would rather have this and then follow-up with her primary care physician. 2 tablets provided for her here in the ER. A prescription for 9 tablets - Vital Signs Vital signs: Temp Pulse Resp BP Pulse Ox 98.7 F 67 16 128/79 H 99 12/06/18 13:44 12/06/18 13:44 12/06/18 13:44 12/06/18 13:44 12/06/18 13:44 Discharge - Discharge Clinical Impression: acute on chronic headache Condition: Good Disposition: HOME, SELF-CARE Instructions: Headache ([facility]), Neurologist Additional Instructions: Your evaluation today does not show any signs of significant pathology. Your physical examination shows that your brain is functioning your neurologically intact. I will highly recommend using the Fioricet as prescribed. I would also recommend following up with your primary care physician and possibly a neurologist. I would recommend for years allergy symptoms [id number] Zyrtec she may also try [id number] Flonase to be aware this can sometimes exacerbate headaches. I do believe further control of your head pain and symptoms of is going to need to be managed by your physician or with the assistance of a neurologist. Prescriptions: Butalb/Acetaminophen/Caffeine [Fioricet (50-325-40 mg) Tablet] 1 tab PO Q6 #9 tab Referrals: KINZA MACK FNP-C [Primary Care Provider] - Follow up as needed
== END 2018-12-06 14:50 | disposition home or self-care (01) ==
LOC: ER 13:32
DX: R51 Headache (principal); H53.149 Visual discomfort, unspecified; Z79.899 Other long term (current) drug therapy; J45.909 Unspecified asthma, uncomplicated
CPT/HCPCS: 99283; J3490